=== PATIENT | male | born 1990 | race Caucasian/White ===

== ENCOUNTER 2018-03-21 12:11 | Emergency (ER) | payer OTHER ==
[2018-03-21 12:33] VITALS: TEMP 98.6; BMI 44.4
--- NOTE | 2018-03-21 13:19 | PDOC ---
History of Present Illness - General Chief Complaint: Blood Pressure Problem Stated Complaint: WEAKNESS Time Seen by Provider: 03/21/18 12:55 History Source: Patient Exam Limitations: No Limitations - History of Present Illness Initial Comments: 03/21/18 13:56 Patient is a 27 year old male with a significant past medical history of HTN, and HLD who presents to the ED with complaints of elevated blood pressure. Patient reports being diagnosed with HTN x6 years ago but states he has not taken medication for it for x1 year due to not having PCP or insurance. Pt ntoes that he intermittently has blood in his semen the past several months, notes he occasionally has diarrhea (non bloody), but non in the past few days. also notes chronic hyperpigmentation of his lower extremities. he notes that he went to 2 other clinics today and they were unable to see him so he came to the ED. The patient. denies any focal complaints including cp, sob, vomiting, fever /chils, cough, dysuria, hematuria, constipation, trammell. Allergies: None Social history: Lives with and 2 children. No smoking. No alcohol. Current Marijuana use. Surgical history: None PMD: None Past History - Past Medical History Allergies/Adverse Reactions: Allergies Allergy/AdvReac Type Severity Reaction Status Date / Time No Known Allergies Allergy Verified 03/21/18 12:27 Home Medications: Ambulatory Orders Hydrochlorothiazide [Hctz -] 25 mg PO BID #30 tablet 03/21/18 Nifedipine [Nifedipine ER] 60 mg PO DAILY #30 tab.er.24 03/21/18 COPD: No HTN: Yes (noncompliant with meds) Hypercholesterolemia: Yes (noncompliant with meds) - Suicide/Smoking/Psychosocial Hx Smoking History: Unknown if ever smoked Hx Alcohol Use: No Drug/Substance Use Hx: Yes (marijuana) Review of Systems - Review of Systems Able to Perform ROS?: Yes Comments:: 03/21/18 13:58 CONSTITUTIONAL: No reported: Fever, Chills, Diaphoresis, Generalized Weakness, Malaise, Loss of Appetite HEENT: No reported: Rhinorrhea, Nasal Congestion, Throat Pain, Throat Swelling, Difficulty Swallowing, Mouth Swelling, Ear Pain, Eye Pain, Visual Changes CARDIOVASCULAR: No reported: Chest Pain, Syncope, Palpitations, Irregular Heart Rate, Lightheadedness, Peripheral Edema RESPIRATORY: No reported: Cough, Shortness of Breath, SOB with Exertion, Orthopnea, Wheezing , Stridor, Hemoptysis GASTROINTESTINAL: +Diarrhea. No reported: Abdominal pain, Abdominal Distension, Nausea, Vomiting, Constipation, Melena, Hematochezia GENITOURINARY: +Bloody semen. No reported: Dysuria, Frequency, Urgency, Hesitancy, Flank Pain, Genital Pain MUSCULOSKELETAL: No reported: Myalgia, Arthralgia, Joint Swelling, Back pain, Neck Pain SKIN: +Bilateral lower extremity rash. No reported:Itching, Pallor HEMATOLOGIC/IMMUNOLOGIC: No reported: Easy Bleeding, Easy Bruising, Lymphadenopathy, Frequent infections ENDOCRINE: No reported: Unexplained Weight Gain, Unexplained Weight Loss, Heat Intolerance , Cold Intolerance NEUROLOGIC: No reported: Headache, Focal Weakness, Paresthesias, Vertigo, Lightheadedness, Unsteady Gait, Seizure, Mental Status Changes, Incontinence PSYCHIATRIC: No reported: Anxiety, Depression *Physical Exam - Vital Signs Last Vital Signs Temp Pulse Resp BP Pulse Ox 98.6 F 117 H 16 216/152 H 97 03/21/18 12:27 03/21/18 12:27 03/21/18 12:27 03/21/18 12:27 03/21/18 12:27 - Physical Exam Comments: 03/21/18 13:52 GENERAL: The patient is awake, alert, and fully oriented, Nontoxic - in no acute distress, obese HEAD: Normocephalic, atraumatic. EYES: extraocular movements intact, sclera anicteric, conjunctiva clear. ENT: Normal voice, Moist mucous membranes. NECK: Normal range of motion, supple LUNGS: Breath sounds equal, clear to auscultation bilaterally. No wheezes, no rhonchi, no rales. HEART: slightly tachcyardic, w/o mrg ABDOMEN: Soft, nontender, normoactive bowel sounds. No guarding, no rebound. . No CVA tenderness EXTREMITIES: Normal range of motion,+edema, +hyperpigmentation of LE cw chronic vascular changes NEUROLOGICAL: No facial assymetry, Normal speech, PSYCH: Normal mood, normal affect. SKIN: Warm, Dry, normal turgor, Heart Score/ECG Review - ECG Impressions Comment:: 03/21/18 18:44 Twelve-lead EKG was performed and reviewed by me. There is normal sinus rhythm with a rate of 107 The axis is normal. The intervals are normal. There is normal R wave progression There are no ST or T wave abnormalities. ED Treatment Course - LABORATORY CBC & Chemistry Diagram: 03/21/18 13:27 03/21/18 13:27 Medical Decision Making - Medical Decision Making 03/21/18 13:16 27y M hx of htn, hl presents for evaluation - notes that he wants to get his health care in order and presents for evaluation. Pt noted to be slightly tachy on arrival. no other complaints. will ck basic labs to r/o hyperglycmeia, dka, occult infection, joby willreassess, anticipate pmd referral if workup negative 03/21/18 15:03 labs reviewed noted for slight elevated lfts, otherwise unrmarkable HR improved to 107 anticipate dc with pmd fu 03/21/18 19:46 bp improved will dc with pmd fu return precautiosn were discussed *DC/Admit/Observation/Transfer Diagnosis at time of Disposition: Hypertension Qualifiers: Hypertension type: essential hypertension Qualified Code(s): I10 - Essential ( primary) hypertension - Discharge Dispostion Disposition: HOME Condition at time of disposition: Improved Decision to Admit order: No - Prescriptions Prescriptions: Hydrochlorothiazide [Hctz -] 25 mg PO BID #30 tablet Nifedipine [Nifedipine ER] 60 mg PO DAILY #30 tab.er.24 - Referrals Referrals: Hector Ramirez MD [Primary Care Provider] - [facility] [place] [facility] [place] Group] - Patient Instructions Printed Discharge Instructions: DI for High Blood Pressure Additional Instructions: Return to the emergency department immediately with ANY new, persistent or worsening symptoms. You MUST call and follow up with your doctor tomorrow for further evaluation of your symptoms. Results were discussed with you. Please make sure your doctor reviews the results of your emergency evaluation. If you had any xrays during your visit, it was read preliminarily by myself, a Radiologist will review it and if there are any additional findings we will call you. Print Language: SOUTH KOREAN - Post Discharge Activity
[2018-03-21] MEDS ORDERED: SODIUM CHLORIDE 1,000 ML IV ONE (13:21)
[2018-03-21 13:49] LABS: BASO % 0.6 % (0-2.0); EOS % 2.5 % (0-4.5); HEMATOCRIT 44.2 % (35.4-49); HEMOGLOBIN 14.9 GM/dL (11.7-16.9); LYMPH % 25.6 % (8-40); MCH 29.2 pg (25.7-33.7); MCHC 33.7 g/dl (32.0-35.9); MEAN CELL VOLUME 86.7 fl (80-96); MEAN PLT VOLUME 10.2 fl (7.5-11.1); MONO % 7.7 % (3.8-10.2); NEUT % 63.6 % (42.8-82.8); PLATELET COUNT 248 K/MM3 (134-434); RDW 12.7 % (11.9-15.9); WHITE BLOOD COUNT 12.7 K/mm3 (4.0-10.0)
[2018-03-21 14:08] LABS: URINE APPEARANCE CLEAR; URINE BILIRUBIN NEGATIVE (<2.0 mg/dL); URINE COLOR LTYELLOW; URINE GLUCOSE (UA) NEGATIVE (NEGATIVE); URINE KETONE NEGATIVE (NEGATIVE); URINE LEUK ESTERASE NEGATIVE (NEGATIVE); URINE NITRITE NEGATIVE (NEGATIVE); URINE PROTEIN 3+ (NEGATIVE); URINE UROBILINOGEN NEGATIVE mg/dL (0.2-1.0)
[2018-03-21 14:14] LABS: ALBUMIN 3.5 g/dl (3.4-5.0); ALK PHOS 147 U/L (45-117); ANION GAP 5 MMOL/L (8-16); BILIRUBIN,TOTAL 0.4 mg/dL (0.2-1); BLOOD UREA NITROGEN 15 mg/dL (7-18); CALCIUM 8.7 mg/dL (8.5-10.1); CHLORIDE 104 mmol/L (98-107); CO2 30 mmol/L (21-32); CREATININE 0.9 mg/dL (0.55-1.3); GLUCOSE,RANDOM 104 mg/dL (74-106); POTASSIUM 4.1 mmol/L (3.5-5.1); SGOT/AST 63 U/L (15-37); SGPT/ALT 123 U/L (13-61); SODIUM 138 mmol/L (136-145); TOT PROT 7.2 g/dl (6.4-8.2)
[2018-03-21] MEDS ORDERED: HYDROCHLOROTHIAZIDE 25 MG TABLET (FP) PO ONE (14:40)
[2018-03-21] MEDS ORDERED: HYDROCHLOROTHIAZIDE 25 MG TABLET (FP) ONE (14:43)
[2018-03-21] MEDS ORDERED: ALPRAZolam 0.25 MG TABLET PO ONE (15:12)
[2018-03-21] MEDS ORDERED: NIFEdipine E.R 60 MG TABLET (UD) PO SCH (16:00)
[2018-03-21] MEDS ORDERED: NIFEdipine E.R. 30 MG TABLET (FP) ONE (16:03)
--- NOTE | 2018-03-21 17:02 | EKG ---
Test Reason : Blood Pressure : / mmHG Vent. Rate : 107 BPM Atrial Rate : 107 BPM P-R Int : 150 ms QRS Dur : 088 ms QT Int : 354 ms P-R-T Axes : 052 067 054 degrees QTc Int : 472 ms SINUS TACHYCARDIA POSSIBLE LEFT ATRIAL ENLARGEMENT BORDERLINE ECG NO PREVIOUS ECGS AVAILABLE Confirmed by MD FRANCOIS, TERENCE ([id number]) on 03/21/2018 5:01:44 PM Referred By: Confirmed By:TERENCE PARRISH MD
[2018-03-21] MEDS ORDERED: LABETALOL HCL 5 MG/1 ML (100MG/20 ML VIAL) IVPUSH ONE (18:06)
[2018-03-21] MEDS ORDERED: LABETALOL HCL 5 MG/1 ML (200MG/40ML VIAL) IVPB ONE (18:11)
[2018-03-21 19:35] VITALS: BP 182/111; PULSE 98
== END 2018-03-21 19:47 | disposition home or self-care (01) ==
LOC: JER 12:11
PROC: 3E033GC Introduction of Other Therapeutic Substance into Peripheral Vein, Percutaneous Approach (ICD-10-PCS; principal; 2018-03-21)
PROC: 3E0337Z Introduction of Electrolytic and Water Balance Substance into Peripheral Vein, Percutaneous Approach (ICD-10-PCS; 2018-03-21)
DX: I10 Essential (primary) hypertension (principal); E78.5 Hyperlipidemia, unspecified; Z91.14 Patient's other noncompliance with medication regimen
CPT/HCPCS: 36415; 80053; 81003; 81015; 85025; 93005; 93010; 96361; 96374; 99284-25; J7030

== ENCOUNTER 2018-12-11 20:06 | Emergency (ER) | payer OTHER ==
--- NOTE | 2018-12-11 20:18 | PDOC ---
Rapid Medical Evaluation Time Seen by Provider: 12/11/18 20:14 Medical Evaluation: Allergies Allergy/AdvReac Type Severity Reaction Status Date / Time No Known Allergies Allergy Verified 03/21/18 12:27 12/11/18 20:14 This patient had a brief in-person evaluation by me. cc: cyndi x 3 weeks seen and treated my pmd but continues with the same states sick contact, children PE: NAD HEENT: erythematous pharynx Orders: throat culture This patient will proceed to Ed for further evaluation
[2018-12-11 20:20] VITALS: PULSE 98; TEMP 98.2; BMI 44.6
--- NOTE | 2018-12-11 21:19 | PDOC ---
*Physical Exam - Vital Signs Last Vital Signs Temp Pulse Resp BP Pulse Ox 98.2 F 98 H 20 151/106 H 97 12/11/18 20:14 12/11/18 20:14 12/11/18 20:14 12/11/18 20:14 12/11/18 20:14 Medical Decision Making - Medical Decision Making 12/11/18 21:19 Patient seen by the advanced practice provider under my direct supervision. Ancillary testing reviewed as necessary. I agree with plan as outlined by the advanced practice provider. *DC/Admit/Observation/Transfer Diagnosis at time of Disposition: Pharyngitis Qualifiers: Pharyngitis/tonsillitis etiology: unspecified etiology Qualified Code(s): J02.9 - Acute pharyngitis, unspecified Hypertension Qualifiers: Hypertension type: unspecified Qualified Code(s): I10 - Essential (primary) hypertension - Discharge Dispostion Disposition: HOME - Prescriptions Prescriptions: Amoxicillin/Potassium Clav [Augmentin 875-125 Tablet] 1 each PO BID #20 tablet - Referrals Referrals: Hector Ramirez MD [Primary Care Provider] - - Patient Instructions Printed Discharge Instructions: Sore Throat Additional Instructions: gargle with warm salty water take ibuprofen every 6 hours as needed for pain take tylenol every 4 hours as needed for pain throw away toothbrush in 3-4 days do not share cups or utensil with other Take augmentin as prescribed follow up with your doctor as soon as possible. Additional Instructions: Please call your personal physician to report your Emergency Department visit and to report your progress, if any. If there is no improvement in symptoms in 2 days call your physician. Return to the Emergency Department for any worsening symptoms. it is important for your to follow up with your pcp for b/p medication adjustment - Post Discharge Activity Forms/Work/School Notes: Back to Work
--- NOTE | 2018-12-11 21:36 | PDOC ---
History of Present Illness - General Chief Complaint: Sore Throat Stated Complaint: SORE THROAT Time Seen by Provider: 12/11/18 20:14 History Source: Patient - History of Present Illness Initial Comments: 12/11/18 21:29 28 year old male c/o throat pain x 3 weeks s/p antibiotics. kids with strep throat. Difficulty swallowing. denies fever/ chills, + strep 2 days ago. Patient incidentally noted to have high blood pressure reading here in the emergency room. Patient reports that he took his blood pressure medication early this morning denies chest pain, diaphoresis, headache, nausea, vomiting,. 12/11/18 21:32 HTN: 12/11/18 21:36 12/11/18 22:45 Past History - Past Medical History Allergies/Adverse Reactions: Allergies Allergy/AdvReac Type Severity Reaction Status Date / Time No Known Allergies Allergy Verified 03/21/18 12:27 Home Medications: Ambulatory Orders Hydrochlorothiazide [Hctz -] 25 mg PO BID #30 tablet 03/21/18 Nifedipine [Nifedipine ER] 60 mg PO DAILY #30 tab.er.24 03/21/18 Amoxicillin/Potassium Clav [Augmentin 875-125 Tablet] 1 each PO BID #20 tablet 12/11/18 COPD: No HTN: Yes (noncompliant with meds) Hypercholesterolemia: Yes (noncompliant with meds) - Suicide/Smoking/Psychosocial Hx Smoking History: Unknown if ever smoked Information on smoking cessation initiated: No Hx Alcohol Use: No Drug/Substance Use Hx: Yes (marijuana) Review of Systems - Review of Systems Able to Perform ROS?: Yes Is the patient limited Chinese proficient: No Constitutional: No: Symptoms Reported, See HPI, Chills, Diaphoresis, Fever, Loss of Appetite, Malaise, Night Sweats, Weakness, Weight Stable, Unintentional Wgt. Loss, Unexplained wgt Loss, Other HEENTM: Yes: Throat Pain, Throat Swelling *Physical Exam - Vital Signs Last Vital Signs Temp Pulse Resp BP Pulse Ox 98.2 F 98 H 20 151/106 H 97 12/11/18 20:14 12/11/18 20:14 12/11/18 20:14 12/11/18 20:14 12/11/18 20:14 - Physical Exam HEENT: positive: Tonsillar Erythema Neck: positive: Lymphadenopathy (R), Lymphadenopathy (L) Respiratory/Chest: positive: Lungs Clear, Normal Breath Sounds Musculoskeletal: positive: Normal Inspection Extremity: positive: Normal Capillary Refill, Normal Inspection, Normal Range of Motion Integumentary: positive: Normal Color, Dry, Warm Neurologic: positive: Fully Oriented, Alert Medical Decision Making - Medical Decision Making 12/11/18 21:37 A: pharyngitis P rapid strep: negative throat cx pending decadron augmentin *DC/Admit/Observation/Transfer Diagnosis at time of Disposition: Pharyngitis Qualifiers: Pharyngitis/tonsillitis etiology: unspecified etiology Qualified Code(s): J02.9 - Acute pharyngitis, unspecified Hypertension Qualifiers: Hypertension type: unspecified Qualified Code(s): I10 - Essential (primary) hypertension - Discharge Dispostion Disposition: HOME - Prescriptions Prescriptions: Amoxicillin/Potassium Clav [Augmentin 875-125 Tablet] 1 each PO BID #20 tablet - Referrals Referrals: Hector Ramirez MD [Primary Care Provider] - - Patient Instructions Printed Discharge Instructions: Sore Throat Additional Instructions: gargle with warm salty water take ibuprofen every 6 hours as needed for pain take tylenol every 4 hours as needed for pain throw away toothbrush in 3-4 days do not share cups or utensil with other Take augmentin as prescribed follow up with your doctor as soon as possible. Additional Instructions: Please call your personal physician to report your Emergency Department visit and to report your progress, if any. If there is no improvement in symptoms in 2 days call your physician. Return to the Emergency Department for any worsening symptoms. it is important for your to follow up with your pcp for b/p medication adjustment - Post Discharge Activity Forms/Work/School Notes: Back to Work
[2018-12-11] MEDS ORDERED: IBUPROFEN 600 MG TABLET (FP) PO ONE ×2 (21:37→21:55)
[2018-12-11] MEDS ORDERED: DEXAMETHASONE SOD PHOSPHATE 10 MG/1 ML VIAL IM ONE (21:37)
[2018-12-11] MEDS ORDERED: DEXAMETHASONE SOD PHOSPHATE 10 MG/1 ML VIAL ONE (21:55)
[2018-12-11 22:57] VITALS: BP 166/97
== END 2018-12-11 22:57 | disposition home or self-care (01) ==
LOC: JER 20:06
PROC: 3E0233Z Introduction of Anti-inflammatory into Muscle, Percutaneous Approach (ICD-10-PCS; principal; 2018-12-11)
DX: J02.9 Acute pharyngitis, unspecified (principal); I10 Essential (primary) hypertension; E78.00 Pure hypercholesterolemia, unspecified; Z91.14 Patient's other noncompliance with medication regimen
CPT/HCPCS: 87070; 87880; 96372; 99281-25; J1100

== ENCOUNTER 2019-12-19 16:24 | Inpatient (IN) | payer OTHER ==
[2019-12-19 16:56] VITALS: BMI 47.9
--- NOTE | 2019-12-19 17:17 | PDOC ---
History of Present Illness - General Chief Complaint: Syncope/Near Syncope Stated Complaint: Shortness of Breath Time Seen by Provider: 12/19/19 16:49 History Source: Patient Exam Limitations: No Limitations - History of Present Illness Initial Comments: 12/19/19 18:20 29 yo male pmh HTN and HLD (does not have insurance, can not afford medication, not taken for over 7 months) presents to the ED for worsening SOB. Pt states over the last few months he has woken up in the middle of the night SOB, can not walk more than 1 block without becoming SOB. On the way into the ED, pt became significantly SOB after walking up the steps from the parking lot and a rapid response was called in the main lobby. Pt admits to eating BBQ and fast food along with drinking a lot of soda recently. Pt also notes worsening bilateral lower limb swelling. 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 back pain, abdominal pain, recent travel, sick contacts. Past History - Medical History Allergies/Adverse Reactions: Allergies Allergy/AdvReac Type Severity Reaction Status Date / Time No Known Allergies Allergy Verified 03/21/18 12:27 COPD: No HTN: Yes (noncompliant with meds) Hypercholesterolemia: Yes (noncompliant with meds) - Psycho-Social/Smoking History Smoking History: Never smoked Have you smoked in the past 12 months: No Information on smoking cessation initiated: No - Substance Abuse Hx (Audit-C & DAST Scrn) How often the patient has a drink containing alcohol: Monthly or less Number of drinks the patient has on a typical day: 1 or 2 How often the patient has six or more drinks on one occasion: Never Score: In Men: 4 or > Positive; In Women: 3 or > Positive: 1 Screen Result (Pos requires Nsg. Audit-10AR): Negative In the last yr the pt used illegal drug/Rx for NonMed reason: No Score: Yes response is considered Positive: 0 Screen Result (Positive result requires Nsg. DAST-10): Negative Review of Systems - Review of Systems Constitutional: Yes: Symptoms Reported HEENTM: Yes: Symptoms Reported Respiratory: Yes: Symptoms reported Cardiac (ROS): Yes: Symptoms Reported ABD/GI: Yes: Symptoms Reported : Yes: Symptoms Reported Musculoskeletal: Yes: Symptoms Reported *Physical Exam - Vital Signs Last Vital Signs Temp Pulse Resp BP Pulse Ox 98.6 F 136 H 23 H 201/105 H 86 L 12/19/19 16:34 12/19/19 16:34 12/19/19 16:34 12/19/19 16:34 12/19/19 16:34 - Physical Exam General Appearance: Yes: Nourished, Appropriately Dressed. No: Apparent Distress HEENT: positive: EOMI Neck: positive: Supple. negative: Carotid bruit Respiratory/Chest: positive: Rapid RR, Crackles (bilateral bases). negative: Accessory Muscle Use, Decreased Breath Sounds Cardiovascular: positive: Regular Rhythm, S1, S2, Edema (3+ pitting bilaterally), Tachycardia Vascular Pulses: Dorsalis-Pedis (R): 3+, Doralis-Pedis (L): 3+ Gastrointestinal/Abdominal: positive: Soft. negative: Pulsatile Mass, Protuberent, Distended, Guarding, Rebound, Tenderness Musculoskeletal: negative: CVA Tenderness Extremity: positive: Normal Capillary Refill, Normal Inspection, Normal Range of Motion Integumentary: positive: Normal Color, Dry, Warm Neurologic: positive: Fully Oriented, Alert, Normal Mood/Affect, Normal Response ED Treatment Course - LABORATORY CBC & Chemistry Diagram: 12/19/19 17:20 12/19/19 17:20 Medical Decision Making - Medical Decision Making 12/19/19 18:59 29 yo male pmh HTN and HLD (does not have insurance, can not afford medication, not taken for over 7 months) presents to the ED for worsening SOB. Pt states over the last few months he has woken up in the middle of the night SOB, can not walk more than 1 block without becoming SOB. On the way into the ED, pt became significantly SOB after walking up the steps from the parking lot and a rapid response was called in the main lobby. Pt admits to eating BBQ and fast food along with drinking a lot of soda recently. Pt also notes worsening bilateral lower limb swelling. 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 back pain, abdominal pain, recent travel, sick contacts. vitals show elevated BP, RR, HR Bilateral 3+ pitting noted Bedside US shows diffuse B lines, enlarged heart and reduced EF BNP elevated. Pt likely has CHF. D dimer elevated, will do CTA to r/o PE Pending results. Attending Dr. Blanco aware and will continue following case Discharge - Discharge Information Problems reviewed: Yes Clinical Impression/Diagnosis: Hypertensive urgency, Heart failure, Pulmonary edema, Shortness of breath Condition: Guarded - Follow up/Referral - Patient Discharge Instructions - Post Discharge Activity
[2019-12-19 17:38] LABS: BASO % 0.6 % (0-2.0); EOS % 1.7 % (0-4.5); HEMOGLOBIN 15.8 GM/dL (11.7-16.9); LYMPH % 13.8 % (8-40); MCH 28.9 pg (25.7-33.7); MCHC 32.8 g/dl (32.0-35.9); MEAN CELL VOLUME 88.2 fl (80-96); MEAN PLT VOLUME 10.8 fl (7.5-11.1); MONO % 7.3 % (3.8-10.2); NEUT % 76.6 % (42.8-82.8); PLATELET COUNT 240 K/MM3 (134-434); RBC 5.44 M/mm3 (4.00-5.60); RDW 13.6 % (11.9-15.9); WHITE BLOOD COUNT 14.2 K/mm3 (4.0-10.0)
--- NOTE | 2019-12-19 17:40 | PDOC ---
Documentation entered by Anne-Marie Spears SCRIBE, acting as scribe for Nirali Blanco DO. Nirali Blanco DO: This documentation has been prepared by the Belle craig Nirvannie, SCRIBE, under my direction and personally reviewed by me in its entirety. I confirm that the documentation accurately reflects all work, treatment, procedures, and medical decision making performed by me. Attending Attestation - Resident Resident Name: Óscar Deleon - ED Attending Attestation I have performed the following: I have examined & evaluated the patient, The case was reviewed & discussed with the resident, I agree w/resident's findings & plan, Exceptions are as noted - HPI HPI: 12/19/19 18:03 The patient is a 29 year old obese male with a significant past medical history of HTN, HLD, and medication/dietary noncompliance who presents to the ED with shortness of breath. As per patient, he was walking up the stairs of the hospital at which time he began to feel short of breath and lightheaded and a rapid response was called. Patient notes attending multiple BBQs this weekend and subsequently experiencing lower extremity edema (similar with poor dietary compliance). He denies any increased weight gain. Patient has been unable to refill his prescriptions secondary to no insurance. Allergies: NKDA Familial History: Brother s/p heart transplant for unknown reasoning. - Physicial Exam PE: 12/19/19 18:04 Constitutional: Awake, alert, oriented. No acute distress. Head: Normocephalic. Atraumatic Eyes: PERRL. EOMI. Conjunctivae are not pale. ENT: Mucous membranes are moist and intact. Posterior pharynx without exudates or erythema. Uvula midline. Neck: Supple. Full ROM. No lymphadenopathy. Cardiovascular: +Tachycardic. Regular rhythm. S1, S2 regular. Distal pulses are 2+ and symmetric. Pulmonary/Chest: +Bilateral rales. No wheezing or rhonchi. Abdominal: +Obese. +Protuberant. Soft and non-distended. There is no tenderness. No rebound, guarding or rigidity. No organomegaly. No palpable masses. Good bowel sounds. Back: No CVA tenderness. Musculoskeletal: + 3+ LE edema. No cyanosis. No clubbing. Full range of motion in all extremities. No calf tenderness. Radial/pedal pulses are intact and 2+ bilaterally Skin: Skin is warm and dry. No petechiae. No purpura. Neurological: Alert and oriented to person, place, and time. Cranial nerves II-XII are grossly intact. Normal speech. Strength is grossly symmetric. No sensory deficits. Psychiatric: Good eye contact. Normal interaction, affect and behavior. - Medical Decision Making 12/19/19 17:36 a/p: 29yo male with hx of untreated HTN - noncompliant with meds bc of insurance with hx of tachy -pt with a near syncopal episode todya -was walking up the stairs and had severe sob, a rapid response was called, no syncope, but cp and edema -pt with pleuritic cp -pt with pitting edema to LE and rales on exam -hypertensive and tachy -no tearing cp, less suspicious for aortic dissection -repeat bp 160s systolic -will send labs, acs, cxr -will monitor and reassess -concern for acs, cardiomyopathy, hypertensive urgency, ape 12/19/19 17:40 12/19/19 18:24 trop neg mildly elevated bnp 12/19/19 18:24 bedside echo shows depressed ef, b lines diffusely lasix and nitro ordered 12/19/19 18:51 cxr shows pulm vasc congestion and pulm edema will need tele admission and will need hospitalization 12/19/19 19:50 duplex ultrasound neg for dvt 12/19/19 20:42 resident discussed the case with Dr. Chavis for admisson 12/19/19 21:06 cta chest neg for pe, shows pleural effusion and pulm congestion and some lymphadenopathy Heart Score/ECG Review - ECG Intrepretation Comment:: 12/19/19 17:35 sinus tach at 127, lvh, q waves anterior leads which are age indeterminate, st depressions v6/I, abnl ekg Discharge - Discharge Information Problems reviewed: Yes Clinical Impression/Diagnosis: Hypertensive urgency, Heart failure, Pulmonary edema, Shortness of breath Condition: Guarded - Admission Yes - Follow up/Referral - Patient Discharge Instructions - Post Discharge Activity
[2019-12-19 17:46] LABS: INR 1.03 (0.83-1.09); PROTHROMBIN TIME (PATIENT) 12.2 SEC (9.7-13.0)
[2019-12-19 17:49] LABS: ACTIVATED PTT 34.6 SECONDS (25.2-36.5)
[2019-12-19] MEDS ORDERED: FUROSEMIDE 40 MG/4 ML INJECTABLE VIAL IVPUSH ONE (17:59)
[2019-12-19] MEDS ORDERED: NITROGLYCERIN SUBLINGUAL 1/150 0.4 MG TAB SL ONE (18:01)
[2019-12-19] MEDS ORDERED: ASPIRIN 81 MG CHEWABLE TABLETS PO ONE (18:02)
[2019-12-19 18:05] LABS: ALBUMIN 3.1 g/dl (3.4-5.0); BILIRUBIN,TOTAL 0.6 mg/dL (0.2-1); BLOOD UREA NITROGEN 17.1 mg/dL (7-18); CALCIUM 8.6 mg/dL (8.5-10.1); CREATININE 1.2 mg/dL (0.55-1.3); MAGNESIUM 1.8 mg/dL (1.8-2.4); N-TERMINAL BNP 673.4 pg/ml (5-125); POTASSIUM 4.8 mmol/L (3.5-5.1); TOT PROT 6.9 g/dl (6.4-8.2)
[2019-12-19] MEDS ORDERED: ASPIRIN 81 MG CHEWABLE TABLETS ONE (18:13)
[2019-12-19] MEDS ORDERED: NITROGLYCERIN SUBLINGUAL 1/150 0.4 MG TAB ONE ×2 (18:14→18:16)
[2019-12-19] MEDS ORDERED: FUROSEMIDE 40 MG/4 ML INJECTABLE VIAL ONE (18:14)
--- NOTE | 2019-12-19 19:15 | PDOC ---
*Physical Exam - Vital Signs Last Vital Signs Temp Pulse Resp BP Pulse Ox 98.6 F 136 H 23 H 201/105 H 86 L 12/19/19 16:34 12/19/19 16:34 12/19/19 16:34 12/19/19 16:34 12/19/19 16:34 ED Treatment Course - LABORATORY CBC & Chemistry Diagram: 12/19/19 17:20 12/19/19 17:20 - ADDITIONAL ORDERS Additional order review: Laboratory Results 12/19/19 12/19/19 12/19/19 17:53 17:20 17:20 PT with INR INR PTT (Actin FS) D-Dimer 1046 H Sodium 138 Potassium 4.8 Chloride 104 Carbon Dioxide 29 Anion Gap 5 L BUN 17.1 Creatinine 1.2 Est GFR (CKD-EPI)AfAm 92.83 Est GFR (CKD-EPI)NonAf 80.09 Random Glucose 123 H Lactic Acid 1.4 Calcium 8.6 Magnesium 1.8 Total Bilirubin 0.6 AST 74 H ALT 83 H Alkaline Phosphatase 120 H Creatine Kinase 201 Creatine Kinase Index 0.4 CK-MB (CK-2) 1.0 Troponin I 0.02 B-Natriuretic Peptide 673.4 H Total Protein 6.9 Albumin 3.1 L 12/19/19 17:20 PT with INR 12.20 INR 1.03 PTT (Actin FS) 34.6 D-Dimer Sodium Potassium Chloride Carbon Dioxide Anion Gap BUN Creatinine Est GFR (CKD-EPI)AfAm Est GFR (CKD-EPI)NonAf Random Glucose Lactic Acid Calcium Magnesium Total Bilirubin AST ALT Alkaline Phosphatase Creatine Kinase Creatine Kinase Index CK-MB (CK-2) Troponin I B-Natriuretic Peptide Total Protein Albumin 12/19/19 17:20 RBC 5.44 MCV 88.2 MCHC 32.8 RDW 13.6 MPV 10.8 Neutrophils % 76.6 D Lymphocytes % 13.8 D Monocytes % 7.3 Eosinophils % 1.7 Basophils % 0.6 - Medications Given in the ED: ED Medications Discontinued Medications Generic Name Dose Route Start Last Admin Trade Name Freq PRN Reason Stop Dose Admin Aspirin 324 mg 12/19/19 18:02 12/19/19 18:21 Asa - PO 12/19/19 18:03 324 mg ONCE ONE Administration Furosemide 40 mg 12/19/19 17:59 12/19/19 18:20 Lasix Injection - IVPUSH 12/19/19 18:00 40 mg ONCE ONE Administration Nitroglycerin 0.4 mg 12/19/19 18:01 12/19/19 18:21 Nitrostat - SL 12/19/19 18:02 0.4 mg ONCE ONE Administration Medical Decision Making - Medical Decision Making 12/19/19 19:14 received as sign out from day team new onset HF elevated d-dimer SBP down to 140s s/p nitro and lasix [] f/u CTA [] admit 12/19/19 20:01 no dvt seen on b/l LE duplex 12/19/19 20:[address] Chavis Discharge - Discharge Information Problems reviewed: Yes Clinical Impression/Diagnosis: Hypertensive urgency, Heart failure, Pulmonary edema, Shortness of breath Condition: Guarded - Admission Yes - Follow up/Referral - Patient Discharge Instructions - Post Discharge Activity
--- NOTE | 2019-12-19 19:20 | PN ---
Teaching Attending Note Name of Resident: Lori Richmond ATTENDING PHYSICIAN STATEMENT I saw and evaluated the patient. I reviewed the resident's note and discussed the case with the resident. I agree with the resident's findings and plan as documented. SUBJECTIVE: Patient is a 29 year old man with a PMH of Morbid obesity, HTN, Marijuana use, HLD and Nonadherence due to lack of health insurance presents to the ER for worsening SOB for months. Patient states that over the last few months he has woken up in the middle of the night with SOB and cannot walk more than 1 block without becoming SOB. On the way into the ER, he became significantly SOB after walking up the steps from the parking lot and a rapid response was called in the main lobby. Patient admits to eating BBQ and fast food along with drinking a lot of soda recently. Also notes worsening bilateral lower limb swelling. Patient denies chest pain, nausea, vomiting, fever, chills, diarrhea, dysuria, back pain, abdominal pain or frequency. Denies alcohol, tobacco or illicit drug use. No sick contacts or recent travels. Family history of heart disease - his brother is 34 years old and currently on the heart transplant list for the past 5 years, but he does not know the underlying diagnosis. OBJECTIVE: Alert Vital Signs Period Temp Pulse Resp BP Sys/Newman Pulse Ox Last 24 Hr 98.6 F 112-136 16-23 158-201/95-105 86-98 HEENT: No Jaundice, eye redness or discharge, PERRLA, EOMI. Normocephalic, atraumatic. External ears are normal and hearing is grossly intact. No nasal discharge. Neck: Supple, nontender. No palpable adenopathy or thyromegaly. No JVD Chest: Good effort. Clear to auscultation and percussion. Heart: Regular. No S3, rub or murmur Abdomen: Not distended, soft, nontender and no HSM. No rebound or guarding. Normal bowel sounds. Ext: Peripheral pulses intact. No leg edema. Skin: Warm and dry. No petechiae, rash or ecchymosis. Neuro: Alert. Oriented x3. CN 2-12 grossly intact. Sensation grossly intact in all four extremities and DTR are symmetric. Psych: Appropriate mood and affect. Good insight. Abnormal Lab Results 12/19/19 12/19/19 12/19/19 17:20 17:20 17:53 WBC 14.2 H Absolute Neuts (auto) 10.8 H D-Dimer 1046 H Anion Gap 5 L Random Glucose 123 H AST 74 H ALT 83 H Alkaline Phosphatase 120 H LD Total 549 H C-Reactive Protein 0.5 H B-Natriuretic Peptide 673.4 H Albumin 3.1 L ASSESSMENT AND PLAN: 1. New onset CHF/Acute hypoxic respiratory failure/Rule out COVID-19 infection - Oxygen saturation was 86% on room air. CXR shows cardiomegaly with bilateral interstitial markings suggestive of pulmonary vascular congestion. No leg DVT noted on vascular study. Chest CTA.... Elevated LFTs may signal hepatic congestion due to CHF, but will get hepatitis serology, abdominal sonogram and trend LFTs. Viral testing for COVID-19 ordered and patient placed on airborne, droplet and contact isolation. Started on supplemental oxygen via nasal cannula. ER staff prescribed SL NTG, ASA 324 mg and IV Lasix 40 mg for the patient. EKG shows sinus tachycardia at 127/minute and QTc with no significant ST-T wave changes. Initial troponin is negative. Will admit to telemetry, get ECHO, fasting lipids, HbA1c, TFT, treat with escalating doses of IV Lasix to achieve adequate diuresis, restrict dietary salt intake, monitor renal function, monitor and replete electrolytes, get daily weight and consult Cardiology. Will continue comprehensive care for all of patients comorbid conditions. 2. Hypoalbuminemia - Possibly due to combined effects of malnutrition and inflammation associated with comorbid conditions. Will ensure adequate dietary protein intake and also consult wet mix operator. Urinalysis pending. 3. Morbid obesity Counseled on the risks associated with morbid obesity. Will provide patient all the necessary assistance, counseling and positive reinforcement to facilitate weight loss. Consult wet mix operator. 4. Hypertensive urgency BP improved to 158/95 in the ER after initial treatment. Will start Coreg and Lisinopril in addition to the IV lasix. Subsequently, will revise regimen to ensure [id number] excellent BP control. Patient counseled on the injurious effects of uncontrolled hypertension. Nonpharmacologic measures to control hypertension like weight loss, salt restriction and exercise stressed. Importance of adherence to treatment regimen and attainment of normotension emphasized. 5. DVT prophylaxis - Lovenox 40 mg SQ q 12 hours. 6. Advance directives - Full code
[2019-12-20 00:48] LABS: EPI CELLS 7 /uL (0-25.1); HYALINE CASTS 0 /uL (0-3.1); URINE APPEARANCE CLEAR; URINE BACTERIA 4 /uL (0-1359); URINE BILIRUBIN NEGATIVE (NEGATIVE); URINE COLOR YELLOW; URINE GLUCOSE (UA) NEGATIVE (NEGATIVE); URINE KETONE NEGATIVE (NEGATIVE); URINE LEUK ESTERASE NEGATIVE (NEGATIVE); URINE NITRITE NEGATIVE (NEGATIVE); URINE PROTEIN 2+ (NEGATIVE); URINE RBC 3 /uL (0-23.9); URINE UROBILINOGEN 0.2 mg/dL (0.2-1.0); URINE WBC 2 /uL (0-25.8)
--- NOTE | 2019-12-20 07:20 | CON.CARD ---
Consult Consult Specialty:: cardiology Reason for Consultation:: HTN; CHF - History of Present Illness Chief Complaint: Pt A&Ox3; easily dyspneic; denies chest pain. History of Present Illness: Mr. Vivar is a 29 yo male with pmh HTN, HLD (does not have insurance, cannot afford medication, has not taken meds for over 7 months), morbid obesity (weighed 170 lbs at 18 yrs old; played several sports; since of child 9 yrs ago, he became sedentary and, though keeps healthy diet, eats "too much", and has at least 2 liters soda daily; "I know food can be an addiction"), likely sleep apnea (snores excessively; sometimes falls asleep while driving during the day), now presents to the ED for worsening SOB. Pt states over the last few months he has woken up in the middle of the night SOB, cannot walk more than 1 block without becoming SOB. On the way into the ED, pt became significantly SOB after walking up the steps from the parking lot and a rapid response was called in the main lobby. Pt admits to eating BBQ and fast food along with drinking a lot of soda recently. Pt also notes worsening bilateral lower limb swelling. 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 Denies CP, F/C/N/V. back pain, abdominal pain, recent travel, sick contacts. No hx smoking cigarettes. Alcohol:rare; never a heavy drinker. Substance abuse: marijuana a few times a week; otherwise no others. No family hx CAD/CVA. 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 - History Source History Provided By: Patient, Medical Record Limitations to Obtaining History: No Limitations - Past Medical History Cardio/Vascular: Yes: CHF, HTN - Alcohol/Substance Use Hx Alcohol Use: No - Smoking History Smoking history: Never smoked Have you smoked in the past 12 months: No Home Medications - Allergies Allergies/Adverse Reactions: Allergies Allergy/AdvReac Type Severity Reaction Status Date / Time No Known Allergies Allergy Verified 03/21/18 12:27 - Home Medications Home Medications: Ambulatory Orders NK [No Known Home Medication] 12/20/19 Vital Signs: Vital Signs Temperature 98.1 F 12/20/19 06:46 Pulse Rate 115 H 12/20/19 06:46 Respiratory Rate 22 H 12/20/19 06:46 Blood Pressure 158/113 H 12/20/19 06:46 O2 Sat by Pulse Oximetry (%) 98 12/20/19 06:46 - Other Data Labs, Other Data: CBC, BMP 12/19/19 17:20 12/19/19 17:20 INR, PTT INR 1.03 (0.83-1.09) 12/19/19 17:20 Troponin, BNP 12/19/19 17:20 Troponin I 0.02 B-Natriuretic Peptide 673.4 H Troponin, BNP 12/19/19 17:20 Troponin I 0.02 B-Natriuretic Peptide 673.4 H Assessment/Plan Noncompliance to medications, diet, exercise, doctors' visits; no insurance Morbid obesity Hypertensive urgency; tachycardia; elevated BNP Dyspnea on exertion sedentary hyperlipidemia elevated glucose Hypoalbuminemia Elevated LFTs Brother on heart transplant list CT chest: mediastinal and hilar lymphadenopathy; small pleural effusions; interstitial vascular congestion Leukocytosis PlN: Serial EKG and TNi (initial TNI 0.02) Start lisinopril and HCTZ; f/u BP serially. F/u BUN/Cr, electrolytes, daily weight, Is and Os. ECHO for LVEF, valve status. CTA negative for PE; f/u regarding lymphadenopathy Lipid profile; TSH; HGBA1c. Major issues are noncompliance, lack of insurance; poor prognosis if these are not addressed. Addendum: TSH WNL Elevated LDL cholesterol. F/u LFTs (presently elevated); plan to start statin.
[2019-12-20] MEDS ORDERED: HYDROCHLOROTHIAZIDE 25 MG TABLET (FP) ONE (07:54)
[2019-12-20] MEDS: HYDROCHLOROTHIAZIDE 12.5 MG CAPSULE (FP) PO SCH ×2 (07:58→09:00)
[2019-12-20] MEDS: LISINOPRIL 5 MG TABLET (FP) PO SCH ×2 (07:59→09:00)
[2019-12-20] MEDS ORDERED: HEPARIN NA (PORCINE) 5,000 UNITS/ML 1ML VIAL ONE (09:25)
[2019-12-20] MEDS ORDERED: ASPIRIN COATED 81 MG TABLET.EC ONE (09:25)
[2019-12-20] MEDS: HEPARIN NA (PORCINE) 5,000 UNITS/ML 1ML VIAL SQ SCH ×2 (09:30→21:39)
[2019-12-20] MEDS: ASPIRIN COATED 81 MG TABLET.EC PO SCH (09:30)
--- NOTE | 2019-12-20 11:09 | CONSULT ---
Consultation: REQUESTING PROVIDER: Dr. Chavis CONSULT REQUEST: We have been asked to medically evaluate this patient for lymphadenopathy. HISTORY OF PRESENT ILLNESS: Pt. is a 29 y.o. M w/ PMHx. of HTN, HLD and Hx. of heart murmur presents for shortness of breath that began yesterday morning. Pt. states that over the weekend he went to multiple family barbecues and had a lot of salty foods. Previously he was diet gin and trying to watch what he ate. His shortness of breath got progressively worse such that he came to the ED for evaluation. Just prior to entering the ED, rapid response was called for near syncope. We are called to assess for lymphadenopathy noted on CTA. Pt. denies any recent changes in weight, though he does endorse progressive swelling in hig lower extremities over the last few months. Pt. endorses family history of his brother having received a heart transplant on his(brother's) birthday, [birth year] at 34 years old for an unknown heart condition. Pt. endorses being told he had a heart murmur when he was small and that his 2 year old daughter has a heart murmur. Pt. states he snores loudly at night and this he has sleep apnea. Pt. endorses longstanding palpitations and feeling like his heart is moving "double time." Pt. denies any family history of cancer, and blood in his stool or urine, any constipation, and night sweats, nausea, vomiting, fevers or numbness tingling in his extremities. Pt. denies any toxic habits. Pt. states that when he decreases his salt intake he notices that his swelling goes down. REVIEW OF SYSTEMS: As above PHYSICAL EXAMINATION Vital Signs - 24 hr 12/19/19 12/19/19 12/19/19 16:27 16:34 19:44 Temperature 98.6 F Pulse Rate 136 H Pulse Rate [ 112 H Radial] Pulse Rate [ Right Radial] Respiratory 23 H 16 Rate Blood Pressure 201/105 H Blood Pressure 158/95 [Left Arm] Blood Pressure [Right Arm] O2 Sat by Pulse 96 86 L 98 Oximetry (%) 12/19/19 12/19/19 12/20/19 22:23 22:42 00:00 Temperature Pulse Rate Pulse Rate [ 113 H 113 H Radial] Pulse Rate [ Right Radial] Respiratory 17 20 Rate Blood Pressure Blood Pressure 161/92 159/96 [Left Arm] Blood Pressure [Right Arm] O2 Sat by Pulse 98 98 98 Oximetry (%) 12/20/19 12/20/19 12/20/19 02:39 03:40 03:41 Temperature Pulse Rate Pulse Rate [ 112 H 112 H Radial] Pulse Rate [ Right Radial] Respiratory 20 20 Rate Blood Pressure Blood Pressure 159/114 H 155/82 [Left Arm] Blood Pressure [Right Arm] O2 Sat by Pulse 98 98 98 Oximetry (%) 12/20/19 12/20/19 12/20/19 06:46 08:00 08:05 Temperature 98.1 F Pulse Rate 98 H Pulse Rate [ Radial] Pulse Rate [ 115 H 98 H Right Radial] Respiratory 22 H 16 Rate Blood Pressure Blood Pressure 158/113 H 159/105 H [Left Arm] Blood Pressure 162/114 H [Right Arm] O2 Sat by Pulse 98 96 96 Oximetry (%) 12/20/19 12/20/19 09:00 10:22 Temperature Pulse Rate Pulse Rate [ Radial] Pulse Rate [ 105 H 103 H Right Radial] Respiratory 18 14 Rate Blood Pressure Blood Pressure 145/99 156/106 H [Left Arm] Blood Pressure [Right Arm] O2 Sat by Pulse 96 96 Oximetry (%) GENERAL: Awake, alert, and fully oriented, in no acute distress. HEAD: Normal with no signs of trauma. EYES: Extraocular movements intact, sclera anicteric, conjunctiva clear. EARS, NOSE, THROAT: Ears normal, nares patent, oropharynx clear without exudates. Moist mucous membranes. NECK: No JVD, no hepatojugular reflex LUNGS: Decreased breath dounds up to mid-lung bilaterally, crackles at bases. No accessory muscle use. Desaturated to 80s once O2 turned off, titrated back to 95% on 2LNC (was on 4LNC during my interview) HEART: Tachycardic, regular rate and rhythm, normal S1 and S2 with mumur ABDOMEN: Soft, nontender, not distended but protuberant, normoactive bowel sounds, no guarding, no rebound, no masses. MUSCULOSKELETAL: Normal range of motion at all joints. No bony deformities or tenderness. UPPER EXTREMITIES: 2+ radial pulses, warm, well-perfused. No cyanosis. No clubbing. LOWER EXTREMITIES: 2+ dorsal pedal pulses, warm, well-perfused. No calf tenderness. 2+ edema. NEUROLOGICAL: No focal deficits, Gait not assessed, Normal speech PSYCHIATRIC: Cooperative. Good eye contact. Appropriate mood and affect. SKIN: Warm, dry, normal turgor Laboratory Results - last 24 hr 12/19/19 12/19/19 12/19/19 17:20 17:20 17:20 WBC 14.2 H RBC 5.44 Hgb 15.8 Hct 48.0 MCV 88.2 MCH 28.9 MCHC 32.8 RDW 13.6 Plt Count 240 MPV 10.8 Absolute Neuts (auto) 10.8 H Neutrophils % 76.6 D Lymphocytes % 13.8 D Monocytes % 7.3 Eosinophils % 1.7 Basophils % 0.6 Nucleated RBC % 0 PT with INR 12.20 INR 1.03 PTT (Actin FS) 34.6 D-Dimer Sodium 138 Potassium 4.8 Chloride 104 Carbon Dioxide 29 Anion Gap 5 L BUN 17.1 Creatinine 1.2 Est GFR (CKD-EPI)AfAm 92.83 Est GFR (CKD-EPI)NonAf 80.09 Random Glucose 123 H Hemoglobin A1c % Lactic Acid Calcium 8.6 Magnesium 1.8 Ferritin 42.4 Total Bilirubin 0.6 AST 74 H ALT 83 H Alkaline Phosphatase 120 H LD Total 549 H Creatine Kinase 201 Creatine Kinase Index 0.4 CK-MB (CK-2) 1.0 Troponin I 0.02 C-Reactive Protein 0.5 H B-Natriuretic Peptide 673.4 H Total Protein 6.9 Albumin 3.1 L Triglycerides Cholesterol Total LDL Cholesterol HDL Cholesterol TSH Urine Color Urine Appearance Urine pH Ur Specific [place] Urine Protein Urine Glucose (UA) Urine Ketones Urine Blood Urine Nitrite Urine Bilirubin Urine Urobilinogen Ur Leukocyte Esterase Urine WBC (Auto) Urine RBC (Auto) Urine Casts (Auto) U Epithel Cells (Auto) Urine Bacteria (Auto) 12/19/19 12/19/19 12/20/19 17:20 17:53 00:30 WBC RBC Hgb Hct MCV MCH MCHC RDW Plt Count MPV Absolute Neuts (auto) Neutrophils % Lymphocytes % Monocytes % Eosinophils % Basophils % Nucleated RBC % PT with INR INR PTT (Actin FS) D-Dimer 1046 H Sodium Potassium Chloride Carbon Dioxide Anion Gap BUN Creatinine Est GFR (CKD-EPI)AfAm Est GFR (CKD-EPI)NonAf Random Glucose Hemoglobin A1c % Lactic Acid 1.4 Calcium Magnesium Ferritin Total Bilirubin AST ALT Alkaline Phosphatase LD Total Creatine Kinase Creatine Kinase Index CK-MB (CK-2) Troponin I C-Reactive Protein B-Natriuretic Peptide Total Protein Albumin Triglycerides Cholesterol Total LDL Cholesterol HDL Cholesterol TSH Urine Color Yellow Urine Appearance Clear Urine pH 6.0 Ur Specific [place] 1.012 Urine Protein 2+ H Urine Glucose (UA) Negative Urine Ketones Negative Urine Blood Negative Urine Nitrite Negative Urine Bilirubin Negative Urine Urobilinogen 0.2 Ur Leukocyte Esterase Negative Urine WBC (Auto) 2 Urine RBC (Auto) 3 Urine Casts (Auto) 0 U Epithel Cells (Auto) 7 Urine Bacteria (Auto) 4 12/20/19 12/20/19 09:49 09:49 WBC RBC Hgb Hct MCV MCH MCHC RDW Plt Count MPV Absolute Neuts (auto) Neutrophils % Lymphocytes % Monocytes % Eosinophils % Basophils % Nucleated RBC % PT with INR INR PTT (Actin FS) D-Dimer Sodium Potassium Chloride Carbon Dioxide Anion Gap BUN Creatinine Est GFR (CKD-EPI)AfAm Est GFR (CKD-EPI)NonAf Random Glucose Hemoglobin A1c % 6.4 H Lactic Acid Calcium Magnesium Ferritin Total Bilirubin AST ALT Alkaline Phosphatase LD Total 299 H Creatine Kinase 129 Creatine Kinase Index CK-MB (CK-2) Troponin I 0.02 C-Reactive Protein B-Natriuretic Peptide Total Protein Albumin Triglycerides 272 H Cholesterol 273 H Total LDL Cholesterol 171 H HDL Cholesterol 50 TSH 1.78 Urine Color Urine Appearance Urine pH Ur Specific [place] Urine Protein Urine Glucose (UA) Urine Ketones Urine Blood Urine Nitrite Urine Bilirubin Urine Urobilinogen Ur Leukocyte Esterase Urine WBC (Auto) Urine RBC (Auto) Urine Casts (Auto) U Epithel Cells (Auto) Urine Bacteria (Auto) Active Medications Generic Name Dose Route Start Last Admin Trade Name Freq PRN Reason Stop Dose Admin Aspirin 81 mg 12/20/19 10:00 12/20/19 09:30 Ecotrin - PO 81 mg DAILY ARRON Administration Heparin Sodium (Porcine) 5,000 unit 12/20/19 10:00 12/20/19 09:30 Heparin - SQ 5,000 unit BID ARRON Administration Hydrochlorothiazide 12.5 mg 12/20/19 07:45 12/20/19 09:00 Hctz - PO Not Given DAILY ARRON Lisinopril 5 mg 12/20/19 07:45 12/20/19 09:00 Prinivil PO Not Given DAILY ARRON ASSESSMENT/PLAN: Pt. is a 29 y.o. M w/ PMHx. of HTN, HLD and Hx. of heart murmur presents for shortness of breath that began yesterday morning. #Lymphadenopathy CTA noted slight interval increase in mediastinal and hilar lymphnodes, negative for PE Pt. negative for DVT CXR: shows cardiomegaly, pulmonary congestion EKG: LVH, sinus tachycardia to 127, Q waves in anterior leads, ST depression in V6 and I This picture is suggestive of congestive heart failure with lymphadenopathy as a sequela/reactive of volume overload Lymphnodes are mildly enlarged to 1.2 cm w/o any other clinical signs of malignancy would repeat CT 3 months. f/u Covid swab Cardiology consult appreciated, f/u Echo DVT Ppx. f/u LDH Dispo: We will continue to follow the patient. Thank you for this consultative opportunity. Visit type - Emergency Visit Emergency Visit: Yes ED Registration Date: 12/19/19 Care time: The patient presented to the Emergency Department on the above date and was hospitalized for further evaluation of their emergent condition. - New Patient This patient is new to me today: Yes Date on this admission: 12/20/19 - Critical Care Critical Care patient: No ATTENDING PHYSICIAN STATEMENT I saw and evaluated the patient. I reviewed the resident's note and discussed the case with the resident. I agree with the resident's findings and plan as documented. SUBJECTIVE: OBJECTIVE: ASSESSMENT AND PLAN:
--- NOTE | 2019-12-20 11:53 | EKG ---
Test Reason : Blood Pressure : / mmHG Vent. Rate : 127 BPM Atrial Rate : 127 BPM P-R Int : 142 ms QRS Dur : 090 ms QT Int : 326 ms P-R-T Axes : 039 052 033 degrees QTc Int : 473 ms SINUS TACHYCARDIA LEFT ATRIAL ENLARGEMENT BORDERLINE ECG WHEN COMPARED WITH ECG OF 21-MAR-2018 14:54, NO SIGNIFICANT CHANGE WAS FOUND Confirmed by HILARIO ROMO MD ([id number]) on 12/20/2019 11:53:27 AM Referred By: Confirmed By:HILARIO ROMO MD
--- NOTE | 2019-12-20 13:44 | ECHO ---
Name: ASTER GARIBAY Exam:Adult Echocardiogram Study Date: 12/20/2019 11:53 AM Age: 29 yrs Reason For Study: HTN URGENCY; CHF Height: 69 in Weight: 325 lb BSA: 2.5 m2 MMode/2D Measurements & Calculations RVDd: 4.1 cm Ao root diam: 3.1 cm IVSd: 1.5 cm LA dimension: 4.9 cm LVIDd: 5.3 cm ACS: 1.8 cm LVIDs: 4.1 cm LVPWd: 1.5 cm EDV(Teich): 134.6 ml LVOT diam: 2.3 cm ESV(Teich): 74.0 ml LVLd ap4: 9.6 cm SV(MOD-sp4): 91.0 ml EDV(MOD-sp4): 221.0 ml LVLs ap4: 8.6 cm ESV(MOD-sp4): 130.0 ml LAV (MOD-bp): 92.0 ml TAPSE: 1.6 cm RV S Charlie: 13.1 cm/sec Doppler Measurements & Calculations MV E max charlie: 111.9 cm/sec Ao V2 max: 114.0 cm/sec MV A max charlie: 71.3 cm/sec Ao max P.2 mmHg MV E/A: 1.6 Ao V2 mean: 83.2 cm/sec MV dec time: 0.19 sec Ao mean P.2 mmHg Ao V2 VTI: 17.9 cm WILEY(I,D): 3.2 cm2 WILEY(V,D): 3.3 cm2 LV V1 max P.0 mmHg SV(LVOT): 56.9 ml LV V1 mean P.7 mmHg LV V1 max: 87.2 cm/sec LV V1 mean: 59.5 cm/sec LV V1 VTI: 13.2 cm TR max charlie: 247.0 cm/sec PA V2 max: 107.2 cm/sec TR max P.4 mmHg PA max P.6 mmHg PA acc slope: 546.7 cm/sec2 PA acc time: 0.14 sec Med Peak E' Charlie: 6.7 cm/sec PA pr(Accel): 15.6 mmHg Med E/e': 16.6 Lat Peak E' Charlie: 7.1 cm/sec Lat E/e': 15.7 Tech Comments TDS due to morbid obesity. Procedure A complete two-dimensional transthoracic echocardiogram was performed (2D, M-mode, Doppler and color flow Doppler). Left Ventricle There is mild concentric left ventricular hypertrophy. The left ventricular ejection fraction is norm al. Ejection Fraction = 55-60%. No regional wall motion abnormalities noted. Right Ventricle The right ventricle is normal in size and function. Atria The left atrium is mildly dilated. Right atrial size is normal. Mitral Valve There is no mitral regurgitation noted. Tricuspid Valve There is trace tricuspid regurgitation. Right ventricular systolic pressure is normal. Aortic Valve No hemodynamically significant valvular aortic stenosis. No aortic regurgitation is present. Pulmonic Valve There is no pulmonic valvular regurgitation. Great Vessels The aortic root is normal size. Pericardium/Pleura There is no pericardial effusion. Interpretation Summary The left ventricular ejection fraction is normal. There is mild concentric left ventricular hypertrophy. The right ventricle is normal in size and function. The left atrium is mildly dilated. There is trace tricuspid regurgitation. MD Navin Mina 12/20/2019 01:43 PM
--- NOTE | 2019-12-20 13:52 | HP ---
Admitting History and Physical - Primary Care Physician PCP: Gabriela Chavis - Admission History of Present Illness: Mr. Vivar is a 29 yo male with pmh HTN and HLD (does not have insurance, cannot afford medication, has not taken meds for over 7 months) presents to the ED for worsening SOB. Pt states over the last few months he has woken up in the middle of the night SOB, cannot walk more than 1 block without becoming SOB. On the way into the ED, pt became significantly SOB after walking up the steps from the parking lot and a rapid response was called in the main lobby. Pt admits to eating BBQ and fast food along with drinking a lot of soda recently. Pt also notes worsening bilateral lower limb swelling. 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 Denies CP, F/C/N/V. back pain, abdominal pain, recent travel, sick contacts. - Past Medical History Cardiovascular: Yes: CHF, HTN - Smoking History Smoking history: Never smoked Have you smoked in the past 12 months: No - Alcohol/Substance Use Hx Alcohol Use: No Home Medications - Allergies Allergies/Adverse Reactions: Allergies Allergy/AdvReac Type Severity Reaction Status Date / Time No Known Allergies Allergy Verified 03/21/18 12:27 - Home Medications Home Medications: Ambulatory Orders NK [No Known Home Medication] 12/20/19 Physical Examination Vital Signs: Vital Signs Temperature 98.1 F 12/20/19 06:46 Pulse Rate 100 H 12/20/19 12:45 Respiratory Rate 18 12/20/19 12:45 Blood Pressure 153/102 H 12/20/19 12:45 O2 Sat by Pulse Oximetry (%) 96 12/20/19 12:45 Constitutional: Yes: No Distress HENT: Yes: Atraumatic Neck: Yes: Supple Cardiovascular: Yes: Regular Rate and Rhythm Respiratory: Yes: Rhonchi Gastrointestinal: Yes: Normal Bowel Sounds Extremities: Yes: WNL Neurological: Yes: Alert, Oriented Labs: CBC, BMP 12/19/19 17:20 12/19/19 17:20 Imaging - Results Cat Scan: Report Reviewed Other: Report Reviewed Problem List - Problems (1) Heart failure Code(s): I50.9 - HEART FAILURE, UNSPECIFIED (2) Hypertensive urgency Assessment/Plan: on meds monitor bp cardio on board Code(s): I16.0 - HYPERTENSIVE URGENCY (3) Shortness of breath Code(s): R06.02 - SHORTNESS OF BREATH (4) Hypertension Code(s): I10 - ESSENTIAL (PRIMARY) HYPERTENSION Qualifiers: Hypertension type: unspecified Qualified Code(s): I10 - Essential (primary) hypertension Assessment/Plan Laboratory Tests 12/19/19 12/19/19 12/19/19 17:20 17:20 17:20 WBC 14.2 H RBC 5.44 Hgb 15.8 Hct 48.0 MCV 88.2 MCH 28.9 MCHC 32.8 RDW 13.6 Plt Count 240 MPV 10.8 Absolute Neuts (auto) 10.8 H Neutrophils % 76.6 D Lymphocytes % 13.8 D Monocytes % 7.3 Eosinophils % 1.7 Basophils % 0.6 Nucleated RBC % 0 PT with INR 12.20 INR 1.03 PTT (Actin FS) 34.6 D-Dimer Sodium 138 Potassium 4.8 Chloride 104 Carbon Dioxide 29 Anion Gap 5 L BUN 17.1 Creatinine 1.2 Est GFR (CKD-EPI)AfAm 92.83 Est GFR (CKD-EPI)NonAf 80.09 Random Glucose 123 H Hemoglobin A1c % Lactic Acid Calcium 8.6 Magnesium 1.8 Ferritin 42.4 Total Bilirubin 0.6 AST 74 H ALT 83 H Alkaline Phosphatase 120 H LD Total 549 H Creatine Kinase 201 Creatine Kinase Index 0.4 CK-MB (CK-2) 1.0 Troponin I 0.02 C-Reactive Protein 0.5 H B-Natriuretic Peptide 673.4 H Total Protein 6.9 Albumin 3.1 L Triglycerides Cholesterol Total LDL Cholesterol HDL Cholesterol TSH Urine Color Urine Appearance Urine pH Ur Specific Charlo Urine Protein Urine Glucose (UA) Urine Ketones Urine Blood Urine Nitrite Urine Bilirubin Urine Urobilinogen Ur Leukocyte Esterase Urine WBC (Auto) Urine RBC (Auto) Urine Casts (Auto) U Epithel Cells (Auto) Urine Bacteria (Auto) 12/19/19 12/19/19 12/20/19 17:20 17:53 00:30 WBC RBC Hgb Hct MCV MCH MCHC RDW Plt Count MPV Absolute Neuts (auto) Neutrophils % Lymphocytes % Monocytes % Eosinophils % Basophils % Nucleated RBC % PT with INR INR PTT (Actin FS) D-Dimer 1046 H Sodium Potassium Chloride Carbon Dioxide Anion Gap BUN Creatinine Est GFR (CKD-EPI)AfAm Est GFR (CKD-EPI)NonAf Random Glucose Hemoglobin A1c % Lactic Acid 1.4 Calcium Magnesium Ferritin Total Bilirubin AST ALT Alkaline Phosphatase LD Total Creatine Kinase Creatine Kinase Index CK-MB (CK-2) Troponin I C-Reactive Protein B-Natriuretic Peptide Total Protein Albumin Triglycerides Cholesterol Total LDL Cholesterol HDL Cholesterol TSH Urine Color Yellow Urine Appearance Clear Urine pH 6.0 Ur Specific Charlo 1.012 Urine Protein 2+ H Urine Glucose (UA) Negative Urine Ketones Negative Urine Blood Negative Urine Nitrite Negative Urine Bilirubin Negative Urine Urobilinogen 0.2 Ur Leukocyte Esterase Negative Urine WBC (Auto) 2 Urine RBC (Auto) 3 Urine Casts (Auto) 0 U Epithel Cells (Auto) 7 Urine Bacteria (Auto) 4 12/20/19 12/20/19 09:49 09:49 WBC RBC Hgb Hct MCV MCH MCHC RDW Plt Count MPV Absolute Neuts (auto) Neutrophils % Lymphocytes % Monocytes % Eosinophils % Basophils % Nucleated RBC % PT with INR INR PTT (Actin FS) D-Dimer Sodium Potassium Chloride Carbon Dioxide Anion Gap BUN Creatinine Est GFR (CKD-EPI)AfAm Est GFR (CKD-EPI)NonAf Random Glucose Hemoglobin A1c % 6.4 H Lactic Acid Calcium Magnesium Ferritin Total Bilirubin AST ALT Alkaline Phosphatase LD Total 299 H Creatine Kinase 129 Creatine Kinase Index CK-MB (CK-2) Troponin I 0.02 C-Reactive Protein B-Natriuretic Peptide Total Protein Albumin Triglycerides 272 H Cholesterol 273 H Total LDL Cholesterol 171 H HDL Cholesterol 50 TSH 1.78 Urine Color Urine Appearance Urine pH Ur Specific Charlo Urine Protein Urine Glucose (UA) Urine Ketones Urine Blood Urine Nitrite Urine Bilirubin Urine Urobilinogen Ur Leukocyte Esterase Urine WBC (Auto) Urine RBC (Auto) Urine Casts (Auto) U Epithel Cells (Auto) Urine Bacteria (Auto) Active Medications Generic Name Dose Route Start Last Admin Trade Name Freq PRN Reason Stop Dose Admin Aspirin 81 mg 12/20/19 10:00 12/20/19 09:30 Ecotrin - PO 81 mg DAILY [facility] Administration Heparin Sodium (Porcine) 5,000 unit 12/20/19 10:00 12/20/19 09:30 Heparin - SQ 5,000 unit BID [facility] Administration Hydrochlorothiazide 12.5 mg 12/20/19 07:45 12/20/19 09:00 Hctz - PO Not Given DAILY [facility] Lisinopril 5 mg 12/20/19 07:45 12/20/19 09:00 Prinivil PO Not Given DAILY [facility] COVERING FOR DR CHAVIS TODAY
--- NOTE | 2019-12-20 19:05 | PN ---
Teaching Attending Note Name of Resident: Tanmay Chavez ATTENDING PHYSICIAN STATEMENT I saw and evaluated the patient. I reviewed the resident's note and discussed the case with the resident. I agree with the resident's findings and plan as documented. 29 yo M with htn, hld, obesity, admitted near syncope symptoms. Hypertensive urgency; tachycardia; elevated BNP. +SOB. B/L leg swelling. CTA chest, no PE, but found to have small, non-specific mediastinal LAD. +smoker(marijuana). No constitutional symptoms. on exam: NAD, obese, tachycardic, chest clear, B/L +2 LE edema. Mild elevation of LDH. Likely benign, reactive mediastinal LAD. -would repeat CT chest with contrast in approx 3 months as outpt. -if repeat CT shows progression of LAD, will re-assess. -needs PCP follow-up -d/w House Staff.
[2019-12-20] MEDS ORDERED: ATORVASTATIN CA 80 MG TABLET (FP) PO SCH (22:00)
[2019-12-21 07:11] LABS: BASO % 0.4 % (0-2.0); EOS % 2.5 % (0-4.5); HEMATOCRIT 48.8 % (35.4-49); HEMOGLOBIN 15.9 GM/dL (11.7-16.9); LYMPH % 20.7 % (8-40); MCH 28.5 pg (25.7-33.7); MCHC 32.6 g/dl (32.0-35.9); MEAN CELL VOLUME 87.2 fl (80-96); MEAN PLT VOLUME 10.3 fl (7.5-11.1); MONO % 8.3 % (3.8-10.2); NEUT % 68.1 % (42.8-82.8); PLATELET COUNT 217 K/MM3 (134-434); RDW 13.6 % (11.9-15.9); WHITE BLOOD COUNT 12.1 K/mm3 (4.0-10.0)
[2019-12-21 07:50] LABS: ALBUMIN 3.2 g/dl (3.4-5.0); BILIRUBIN,TOTAL 1.3 mg/dL (0.2-1); BLOOD UREA NITROGEN 20.6 mg/dL (7-18); CALCIUM 9.1 mg/dL (8.5-10.1); CREATININE 1.3 mg/dL (0.55-1.3); POTASSIUM 3.6 mmol/L (3.5-5.1); TOT PROT 6.8 g/dl (6.4-8.2)
[2019-12-21] MEDS: ASPIRIN COATED 81 MG TABLET.EC PO SCH (09:29)
[2019-12-21] MEDS: HYDROCHLOROTHIAZIDE 12.5 MG CAPSULE (FP) PO SCH (09:30)
[2019-12-21] MEDS: HEPARIN NA (PORCINE) 5,000 UNITS/ML 1ML VIAL SQ SCH ×2 (09:30→21:39)
[2019-12-21] MEDS: LISINOPRIL 5 MG TABLET (FP) PO SCH (09:30)
--- NOTE | 2019-12-21 14:22 | PN ---
Progress Note, Physician History of Present Illness: Mr. Vivar is a 29 yo male with pmh HTN, HLD (does not have insurance, cannot afford medication, has not taken meds for over 7 months), morbid obesity (weighed 170 lbs at 18 yrs old; played several sports; since of child 9 yrs ago, he became sedentary and, though keeps healthy diet, eats "too much", and has at least 2 liters soda daily; "I know food can be an addiction"), likely sleep apnea (snores excessively; sometimes falls asleep while driving during the day), now presents to the ED for worsening SOB. Pt states over the last few months he has woken up in the middle of the night SOB, cannot walk more than 1 block without becoming SOB. On the way into the ED, pt became significantly SOB after walking up the steps from the parking lot and a rapid response was called in the main lobby. Pt admits to eating BBQ and fast food along with drinking a lot of soda recently. Pt also notes worsening bilateral lower limb swelling. 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 Denies CP, F/C/N/V. back pain, abdominal pain, recent travel, sick contacts. No hx smoking cigarettes. Alcohol:rare; never a heavy drinker. Substance abuse: marijuana a few times a week; otherwise no others. No family hx CAD/CVA. 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 - Current Medication List Current Medications: Active Medications Aspirin (Ecotrin -) 81 mg PO DAILY [facility] Last Admin: 12/21/19 09:29 Dose: 81 mg Documented by: Heparin Sodium (Porcine) (Heparin -) 5,000 unit SQ BID [facility] Last Admin: 12/21/19 09:30 Dose: 5,000 unit Documented by: Hydrochlorothiazide (Hctz -) 12.5 mg PO DAILY [facility] Last Admin: 12/21/19 09:30 Dose: 12.5 mg Documented by: Lisinopril (Prinivil) 5 mg PO DAILY [facility] Last Admin: 12/21/19 09:30 Dose: 5 mg Documented by: - Objective Vital Signs: Vital Signs Temperature 98.3 F 12/21/19 06:00 Pulse Rate 109 H 12/21/19 09:33 Respiratory Rate 20 12/21/19 09:33 Blood Pressure 176/112 H 12/21/19 09:33 O2 Sat by Pulse Oximetry (%) 92 L 12/21/19 09:33 Eyes: Yes: WNL, Conjunctiva Clear, EOM Intact HENT: Yes: WNL, Atraumatic, Normocephalic Neck: Yes: WNL, Supple, Trachea Midline Cardiovascular: Yes: WNL, Regular Rate and Rhythm Respiratory: Yes: WNL, Regular, CTA Bilaterally Gastrointestinal: Yes: WNL, Normal Bowel Sounds Genitourinary: Yes: WNL Musculoskeletal: Yes: WNL Extremities: Yes: WNL Edema: No Integumentary: Yes: WNL Neurological: Yes: WNL, Alert, Oriented ...Motor Strength: WNL Psychiatric: Yes: WNL Labs: CBC, BMP 12/21/19 05:46 12/21/19 05:46 INR, PTT INR 1.03 (0.83-1.09) 12/19/19 17:20 Assessment/Plan Noncompliance to medications, diet, exercise, doctors' visits; no insurance Morbid obesity Hypertensive urgency; tachycardia; elevated BNP Dyspnea on exertion sedentary hyperlipidemia elevated glucose Hypoalbuminemia Elevated LFTs Brother on heart transplant list CT chest: mediastinal and hilar lymphadenopathy; small pleural effusions; interstitial vascular congestion Leukocytosis PlN: Serial EKG and TNi (initial TNI 0.02) increase isinopril ad Norvasc 5 QD cont HCTZ; f/u BP serially. F/u BUN/Cr, electrolytes, daily weight, Is and Os. ECHO for LVEF, valve status. CTA negative for PE; f/u regarding lymphadenopathy Lipid profile; TSH; HGBA1c. Major issues are noncompliance, lack of insurance; poor prognosis if these are not addressed. TSH WNL Elevated LDL cholesterol. F/u LFTs (presently elevated); plan to start statin.
[2019-12-21] MEDS: amLODIPine BESYLATE 5 MG TABLET (FP) PO SCH (15:43)
[2019-12-21] MEDS: LISINOPRIL 10 MG TABLET (FP) PO SCH (15:43)
--- NOTE | 2019-12-21 21:28 | PN ---
Progress Note, Physician History of Present Illness: No new complaints - Current Medication List Current Medications: Active Medications Amlodipine Besylate (Norvasc -) 5 mg PO DAILY [facility] Last Admin: 12/21/19 15:43 Dose: 5 mg Documented by: Aspirin (Ecotrin -) 81 mg PO DAILY [facility] Last Admin: 12/21/19 09:29 Dose: 81 mg Documented by: Atorvastatin Calcium (Lipitor -) 80 mg PO [facility] Heparin Sodium (Porcine) (Heparin -) 5,000 unit SQ BID [facility] Last Admin: 12/21/19 09:30 Dose: 5,000 unit Documented by: Hydrochlorothiazide (Hctz -) 12.5 mg PO DAILY [facility] Last Admin: 12/21/19 09:30 Dose: 12.5 mg Documented by: Lisinopril (Prinivil) 10 mg PO DAILY [facility] Last Admin: 12/21/19 15:43 Dose: 10 mg Documented by: - Objective Vital Signs: Vital Signs Temperature 98.0 F 12/21/19 18:00 Pulse Rate 99 H 12/21/19 18:00 Respiratory Rate 12/21/19 18:00 Blood Pressure 167/100 12/21/19 18:00 O2 Sat by Pulse Oximetry (%) 92 L 12/21/19 09:33 Neck: Yes: WNL, Supple Cardiovascular: Yes: WNL, Regular Rate and Rhythm Respiratory: Yes: WNL, Regular, CTA Bilaterally Gastrointestinal: Yes: WNL, Normal Bowel Sounds, Soft, Abdomen, Obese Labs: CBC, BMP 12/21/19 05:46 12/21/19 05:46 INR, PTT INR 1.03 (0.83-1.09) 12/19/19 17:20 Problem List - Problems (1) Hypertensive urgency Assessment/Plan: BP still elevated echo showed LV dysfunction Cont lisinopril/norvascc Code(s): I16.0 - HYPERTENSIVE URGENCY (2) Lymphadenopathy Code(s): R59.1 - GENERALIZED ENLARGED LYMPH NODES
[2019-12-21] MEDS: ATORVASTATIN CA 80 MG TABLET (FP) PO SCH (21:39)
--- NOTE | 2019-12-22 06:28 | PN ---
Progress Note (short form) - Note Progress Note: Coverage for Dr. Marquez Cain Chief Complaint: Events noted, notes reviewed, resting in bed, denies any chest discomfort or dyspnea, blood pressure measurements remain elevated History of Present Illness: Seen and examined on telemetry. Events noted, notes reviewed, resting in bed, denies any chest discomfort or dyspnea, blood pressure measurements remain elevated Medications: Current Medications Generic Name Dose Route Start Last Admin Trade Name Jesus PRN Reason Stop Dose Admin Amlodipine Besylate 5 mg 12/21/19 14:30 12/22/19 09:08 Norvasc - PO 5 mg DAILY [facility] Administration Aspirin 81 mg 12/20/19 10:00 12/22/19 09:08 Ecotrin - PO 81 mg DAILY [facility] Administration Atorvastatin Calcium 80 mg 12/21/19 22:00 12/21/19 21:39 Lipitor - PO 80 mg HS [facility] Administration Heparin Sodium (Porcine) 5,000 unit 12/20/19 10:00 12/22/19 09:08 Heparin - SQ 5,000 unit BID [facility] Administration Hydrochlorothiazide 12.5 mg 12/20/19 07:45 12/22/19 09:08 Hctz - PO 12.5 mg DAILY [facility] Administration Lisinopril 10 mg 12/21/19 14:30 12/22/19 09:08 Prinivil PO 10 mg DAILY [facility] Administration Lisinopril 10 mg 12/22/19 12:14 Prinivil PO 12/22/19 12:15 ONCE ONE Review of Systems Constitutional: denies Chills or Fever Respiratory: denies: Dyspnea Cardiovascular: As noted above Gastrointestinal: denies Nausea, Vomiting, Diarrhea or Constipation or Abdominal Discomfort Genitourinary: No Symptoms Reported Musculoskeletal: No Symptoms Reported Vital Signs: Last Vital Signs Temp Pulse Resp BP Pulse Ox 98 F 102 H 20 161/117 H 94 L 12/22/19 09:07 12/22/19 09:07 12/22/19 09:07 12/22/19 09:07 12/22/19 09:07 Intake & Output 12/19/19 12/20/19 12/21/19 12/22/19 23:59 23:59 23:59 23:59 Intake Total 360 480 Output Total 1999 Balance -2000 360 480 Weight 325 lb 325 lb Neck: Supple Negative JVD Respiratory: Clear to auscultation percussion Cardiovascular: S1 S2 Regular Rate Rhythm Gastrointestinal: Soft Benign Normal Bowel Sounds Ext: Negative Edema Bilaterally Labs: CBC, BMP 12/21/19 05:46 12/21/19 05:46 Hepatic Panel Total Bilirubin 1.3 mg/dL (0.2-1) H 12/21/19 05:46 AST 54 U/L (15-37) H 12/21/19 05:46 ALT 88 U/L (13-61) H 12/21/19 05:46 Alkaline Phosphatase 101 U/L (45-117) 12/21/19 05:46 Albumin 3.2 g/dl (3.4-5.0) L 12/21/19 05:46 INR, PTT INR 1.03 (0.83-1.09) 12/19/19 17:20 Assessment/Plan ASSESSMENT: 1. Hypertensive cardiovascular disease with hypertensive urgency precipitated by therapy non-administration/non-compliance, lack of medical F/U 2. Diastolic LV dysfunction with clinical class 0 NYHA classification LV failure 3. Hyperglycemia 4. Hypercholesterolemia 5. Mediastinal lymph adenopathy, consider sarcoidosis in the differential diagnosis 6. Morbid obesity PLAN: 1. Continue Lisinopril, dose titration as needed and as tolerated 2. Continue Norvasc 3. Add B-Blockers unless absolutely contraindicated 4. Continue HCTZ 5. Eventual evaluation of the above noted lymph adenopathy as per the primary team Manjinder Rice MD
[2019-12-22] MEDS: LISINOPRIL 10 MG TABLET (FP) PO SCH (09:08)
[2019-12-22] MEDS: amLODIPine BESYLATE 5 MG TABLET (FP) PO SCH (09:08)
[2019-12-22] MEDS: ASPIRIN COATED 81 MG TABLET.EC PO SCH (09:08)
[2019-12-22] MEDS: HEPARIN NA (PORCINE) 5,000 UNITS/ML 1ML VIAL SQ SCH ×2 (09:08→21:22)
[2019-12-22] MEDS: HYDROCHLOROTHIAZIDE 12.5 MG CAPSULE (FP) PO SCH (09:08)
[2019-12-22] MEDS ORDERED: LISINOPRIL 10 MG TABLET (FP) PO ONE (12:30)
--- NOTE | 2019-12-22 12:50 | PN ---
Teaching Attending Note Name of Resident: Tanmay Chavez ATTENDING PHYSICIAN STATEMENT I saw and evaluated the patient. I reviewed the resident's note and discussed the case with the resident. I agree with the resident's findings and plan as documented. ASSESSMENT AND PLAN: 29 y/o patient with -- 1. Hypertensive cardiovascular disease with hypertensive urgency precipitated by therapy non-administration/non-compliance, lack of medical F/U 2. Diastolic LV dysfunction with clinical class 0 NYHA classification LV failure 3. Hyperglycemia 4. Hypercholesterolemia 5. Mediastinal lymph adenopathy, 6. Morbid obesity mild nmediastinal and hilar adenopathy -- ? reactive outpatient f/u Ct vs PET-Ct ? sarcoidosis
--- NOTE | 2019-12-22 20:39 | PN ---
Progress Note, Physician History of Present Illness: No new complaints - Current Medication List Current Medications: Active Medications Amlodipine Besylate (Norvasc -) 5 mg PO DAILY [facility] Last Admin: 12/22/19 09:08 Dose: 5 mg Documented by: Aspirin (Ecotrin -) 81 mg PO DAILY [facility] Last Admin: 12/22/19 09:08 Dose: 81 mg Documented by: Atorvastatin Calcium (Lipitor -) 80 mg PO HS [facility] Last Admin: 12/21/19 21:39 Dose: 80 mg Documented by: Heparin Sodium (Porcine) (Heparin -) 5,000 unit SQ BID [facility] Last Admin: 12/22/19 09:08 Dose: 5,000 unit Documented by: Hydrochlorothiazide (Hctz -) 12.5 mg PO DAILY [facility] Last Admin: 12/22/19 09:08 Dose: 12.5 mg Documented by: Lisinopril (Prinivil) 10 mg PO DAILY [facility] Last Admin: 12/22/19 09:08 Dose: 10 mg Documented by: - Objective Vital Signs: Vital Signs Temperature 98.3 F 12/22/19 18:00 Pulse Rate 101 H 12/22/19 18:00 Respiratory Rate 20 12/22/19 18:00 Blood Pressure 161/95 12/22/19 18:00 O2 Sat by Pulse Oximetry (%) 97 12/22/19 18:00 Neck: Yes: WNL, Supple Cardiovascular: Yes: WNL, Regular Rate and Rhythm Respiratory: Yes: WNL, Regular, CTA Bilaterally Gastrointestinal: Yes: WNL, Normal Bowel Sounds, Soft, Abdomen, Obese Labs: CBC, BMP 12/21/19 05:46 12/21/19 05:46 INR, PTT INR 1.03 (0.83-1.09) 12/19/19 17:20 Problem List - Problems (1) Hypertensive urgency Assessment/Plan: BP improving echo showed LV dysfunction Cont lisinopril/norvascc Lisinopril dose increased DC planning for am Code(s): I16.0 - HYPERTENSIVE URGENCY (2) Elevated LFTs Assessment/Plan: Will check abdominal US Repeat LFT's in am Code(s): R79.89 - OTHER SPECIFIED ABNORMAL FINDINGS OF BLOOD CHEMISTRY (3) Lymphadenopathy Assessment/Plan: Long d/w pt about need for close follow up Explained to pt that he needs outpt PET scan wc he understands Pt told he needs to see PMD this week to schedule PET scan to r/o malignancy Onco consult noted Code(s): R59.1 - GENERALIZED ENLARGED LYMPH NODES (4) Morbid obesity Code(s): E66.01 - MORBID (SEVERE) OBESITY DUE TO EXCESS CALORIES
[2019-12-22] MEDS: ATORVASTATIN CA 80 MG TABLET (FP) PO SCH (21:22)
--- NOTE | 2019-12-23 06:45 | PN ---
Progress Note (short form) - Note Progress Note: Coverage for Dr. Marquez Cain Chief Complaint: Events noted, notes reviewed, resting in bed, denies any chest discomfort or dyspnea, blood pressure measurements remain elevated History of Present Illness: Seen and examined on telemetry. Events noted, notes reviewed, resting in bed, denies any chest discomfort or dyspnea, blood pressure measurements remain elevated Patient's Lisinopril therapy was discontinued/unknown reason- Personally I feel patient would benefit from PRUDENCIO inhibitors or angiotensin receptor mallory therapy Medications: Current Medications Generic Name Dose Route Start Last Admin Trade Name Jesus PRN Reason Stop Dose Admin Amlodipine Besylate 5 mg 12/21/19 14:30 12/23/19 09:36 Norvasc - PO 5 mg DAILY [facility] Administration Aspirin 81 mg 12/20/19 10:00 12/23/19 09:35 Ecotrin - PO 81 mg DAILY [facility] Administration Atorvastatin Calcium 80 mg 12/21/19 22:00 12/22/19 21:22 Lipitor - PO 80 mg HS [facility] Administration Heparin Sodium (Porcine) 5,000 unit 12/20/19 10:00 12/23/19 09:36 Heparin - SQ 5,000 unit BID [facility] Administration Hydrochlorothiazide 12.5 mg 12/20/19 07:45 12/23/19 09:36 Hctz - PO 12.5 mg DAILY [facility] Administration Review of Systems Constitutional: denies Chills or Fever Respiratory: denies: Dyspnea Cardiovascular: As noted above Gastrointestinal: denies Nausea, Vomiting, Diarrhea or Constipation or Abdominal Discomfort Genitourinary: No Symptoms Reported Musculoskeletal: No Symptoms Reported Vital Signs: Last Vital Signs Temp Pulse Resp BP Pulse Ox 98.7 F 99 H 19 140/82 98 12/23/19 02:48 12/23/19 02:48 12/23/19 02:48 12/23/19 02:48 12/22/19 21:00 Intake & Output 12/20/19 12/21/19 12/22/19 12/23/19 23:59 23:59 23:59 23:59 Intake Total 360 1260 Balance 360 1260 Weight 325 lb Neck: Supple Negative JVD Respiratory: Clear to auscultation percussion Cardiovascular: S1 S2 Regular Rate Rhythm Gastrointestinal: Soft Benign Normal Bowel Sounds Ext: Negative Edema Bilaterally Labs: CBC, BMP 12/23/19 07:10 12/23/19 07:10 CBC, BMP 12/21/19 05:46 12/21/19 05:46 Hepatic Panel Total Bilirubin 1.3 mg/dL (0.2-1) H 12/21/19 05:46 AST 54 U/L (15-37) H 12/21/19 05:46 ALT 88 U/L (13-61) H 12/21/19 05:46 Alkaline Phosphatase 101 U/L (45-117) 12/21/19 05:46 Albumin 3.2 g/dl (3.4-5.0) L 12/21/19 05:46 INR, PTT INR 1.03 (0.83-1.09) 12/19/19 17:20 Assessment/Plan ASSESSMENT: 1. Hypertensive cardiovascular disease with hypertensive urgency precipitated by therapy non-administration/non-compliance, lack of medical F/U 2. Diastolic LV dysfunction with clinical class 0 NYHA classification LV failure 3. Hyperglycemia 4. Hypercholesterolemia 5. Mediastinal lymph adenopathy, consider sarcoidosis in the differential diagnosis 6. Morbid obesity PLAN: 1. Recommend reinitiation of PRUDENCIO inhibitor or angiotensin receptor mallory therapy, dose titration as needed and as tolerated 2. Continue Norvasc 3. As outlined in yesterday's note recommend addition of B-Blockers unless absolutely contraindicated 4. Continue HCTZ 5. Eventual evaluation of the above noted lymph adenopathy as per the primary team Manjinder Rice MD
[2019-12-23 08:22] LABS: BASO % 0.7 % (0-2.0); EOS % 1.8 % (0-4.5); HEMATOCRIT 49.6 % (35.4-49); HEMOGLOBIN 16.3 GM/dL (11.7-16.9); LYMPH % 25.9 % (8-40); MCH 28.8 pg (25.7-33.7); MCHC 32.9 g/dl (32.0-35.9); MEAN CELL VOLUME 87.3 fl (80-96); MEAN PLT VOLUME 10.1 fl (7.5-11.1); MONO % 8.4 % (3.8-10.2); NEUT % 63.2 % (42.8-82.8); PLATELET COUNT 223 K/MM3 (134-434); RBC 5.69 M/mm3 (4.00-5.60); RDW 13.7 % (11.9-15.9); WHITE BLOOD COUNT 10.8 K/mm3 (4.0-10.0)
[2019-12-23 08:44] LABS: ALBUMIN 3.2 g/dl (3.4-5.0); BILIRUBIN,TOTAL 0.7 mg/dL (0.2-1); BLOOD UREA NITROGEN 21.2 mg/dL (7-18); CALCIUM 9.1 mg/dL (8.5-10.1); CREATININE 1.1 mg/dL (0.55-1.3); POTASSIUM 3.9 mmol/L (3.5-5.1); TOT PROT 6.5 g/dl (6.4-8.2)
[2019-12-23] MEDS: ASPIRIN COATED 81 MG TABLET.EC PO SCH (09:35)
[2019-12-23] MEDS: amLODIPine BESYLATE 5 MG TABLET (FP) PO SCH (09:36)
[2019-12-23] MEDS: HYDROCHLOROTHIAZIDE 12.5 MG CAPSULE (FP) PO SCH (09:36)
[2019-12-23] MEDS: HEPARIN NA (PORCINE) 5,000 UNITS/ML 1ML VIAL SQ SCH (09:36)
[2019-12-23] MEDS ORDERED: VALSARTAN 80 MG TABLET (UD) PO SCH (11:00)
[2019-12-23] MEDS ORDERED: LISINOPRIL 10 MG TABLET (FP) PO SCH (13:00)
[2019-12-23 14:39] VITALS: BP 138/84; PULSE 98; TEMP 98.2
== END 2019-12-23 17:00 | disposition home or self-care (01) | DRG 199 ==
LOC: JER 16:24 → JERBED 18:52 → J4S 12-20 13:43
PROVIDERS: ADMIT Internal Medicine; ATTEND Internal Medicine
DX: I16.0 Hypertensive urgency (principal); T50.996A Underdosing of other drugs, medicaments and biological substances, initial encounter; R06.02 Shortness of breath; E78.5 Hyperlipidemia, unspecified; F12.10 Cannabis abuse, uncomplicated; R59.1 Generalized enlarged lymph nodes; I11.0 Hypertensive heart disease with heart failure; I50.30 Unspecified diastolic (congestive) heart failure; D72.829 Elevated white blood cell count, unspecified; R55 Syncope and collapse; R00.0 Tachycardia, unspecified; R73.9 Hyperglycemia, unspecified; E66.01 Morbid (severe) obesity due to excess calories; Z68.42 Body mass index [BMI] 45.0-49.9, adult; Z91.120 Patient's intentional underdosing of medication regimen due to financial hardship
CPT/HCPCS: 36415; 71045-TC-FY; 71275-TC; 76705-TC; 80053; 80061; 81003; 82550; 82553; 82728; 83036; 83605; 83615; 83721; 83735; 83880; 84075; 84443; 84450; 84460; 84484; 85025; 85379; 85610; 85730; 86140; 93005; 93010; 93306-TC; 93970-TC; 99285-25; J1644; Q9967; U0003

== ENCOUNTER 2020-03-14 04:43 | Inpatient (IN) | payer OTHER ==
--- NOTE | 2020-03-14 05:00 | PDOC ---
History of Present Illness - General Stated Complaint: BLOOD PRESSURE PROBLEM Time Seen by Provider: 03/14/20 05:00 Past History - Medical History Allergies/Adverse Reactions: Allergies Allergy/AdvReac Type Severity Reaction Status Date / Time No Known Allergies Allergy Verified 03/21/18 12:27 Home Medications: Ambulatory Orders Amlodipine Besylate [Norvasc -] 5 mg PO DAILY #30 tablet 12/23/19 Aspirin Coated [Ecotrin -] 81 mg PO DAILY #30 tablet.ec 12/23/19 Atorvastatin Ca [Lipitor] 80 mg PO HS #30 tablet 12/23/19 Hydrochlorothiazide [Hctz -] 12.5 mg PO DAILY #30 cap 12/23/19 Lisinopril [Prinivil] 10 mg PO DAILY #30 tablet 12/23/19 Lisinopril [Prinivil] 10 mg PO DAILY #30 tablet 12/23/19 Metoprolol Succinate [Toprol XL -] 50 mg PO DAILY #30 tab.sr.24h 12/23/19 Anemia: No Asthma: No Cancer: No CVA: No COPD: No CHF: No Dementia: No Diabetes: No GI Disorders: No Disorders: No HTN: Yes (noncompliant with meds) Hypercholesterolemia: Yes (noncompliant with meds) Liver Disease: No Seizures: No Thyroid Disease: No - Surgical History Abdominal Surgery: No Appendectomy: No Cardiac Surgery: No Cholecystectomy: No Lung Surgery: No Neurologic Surgery: No Orthopedic Surgery: No - Psycho-Social/Smoking History Smoking History: Never smoked Have you smoked in the past 12 months: No ED Treatment Course - LABORATORY CBC & Chemistry Diagram: 03/14/20 05:30 03/14/20 05:30 Medical Decision Making - Medical Decision Making 03/14/20 06:35 HPI: 29yo M hx HTN with admission for HTN emergency 2.5mo ago (2/2 noncompliance with tx x1yr), diastolic LV dysfunction with clinical class 0 NYHA classification LV failure, HLD, morbid obesity, and mediastinal lymph adenopathy (concern sarcoidosis vs malignancy; PET scan and onc f/u recommended outpatient but pt did not do) presents from home with 2wks gradual onset SOB, BO, dry cough, and high BP 2/2 noncompliance with all meds (HCTZ, metoprolol, norvasc, lisinopril, atorvastatin, aspirin) x2wks (ran out after 60 day supply; appt next week). Denies confusion, headache, dizziness, syncope, chest pain, rhinorrhea, congestion, sick contacts, travel, covid, abdominal pain, N/V, D/C, numbness/tingling, focal weakness, difficulty walking or talking. Endorses some night sweats and 50lb weight loss in 2.5mo. Endorses eating unhealthily, especially lots of salt last night. PE: slowed response to questions, some repetition of answers and seeming confusion, AAOx4, 5/5 strength throughout, SILT throughout, normal gait lungs CTAB no edema MDM: 29yo M hx HTN with admission for HTN emergency 2.5mo ago (2/2 noncompliance with tx x1yr), diastolic LV dysfunction with clinical class 0 NYHA classification LV failure, HLD, morbid obesity, and mediastinal lymph adenopathy (concern sarcoidosis vs malignancy; PET scan and onc f/u recommended outpatient but pt did not do) presents from home with 2wks gradual onset SOB, BO, dry cough, and high BP 2/2 noncompliance with all meds (HCTZ, metoprolol, norvasc, lisinopril, atorvastatin, aspirin) x2wks (ran out after 60 day supply; appt next week). Tachycardic, hypertensive 230/140 on R, 230/146 on L, 96% resting on RA drops to 90% with ambulation, afebrile. Ddx: HTN emergency, ICH, CHF exacerbation, ACS/FL, arrhythmia, PNA, COVID, malignancy, metabolic derangement, infection, anemia -EKG -CXR -CTH -CBC,CMP,Cardiac profile,UA -Enalaprit 1.25mg -Home meds: amlodipine, HCTZ, lisinopril (hold metoprolol) -Dispo: likely admit pending w/u Labs reviewed. Notable for WBC 16.3, bnp 168, trop neg CXR reviewed: no acute pathology, congestion improved from prior CTH reviewed: no acute pathology per wet read EKG reviewed: sinus tachycardia, 115bpm, QTc 475ms, no ST elevations or depressions, no TWIs, no significant changes from prior Signed out to day team Discharge - Follow up/Referral Referrals: Hector Ramirez MD [Primary Care Provider] - - Patient Discharge Instructions - Post Discharge Activity
--- OUTSIDE RECORDS SUMMARY | 2020-03-14 05:05 | XMS ---
:1990 Author Organization [facility] Support Name Relationship Address Phone UE, UNEMPLOYED Unavailable Unavailable Unavailable UE Unavailable Unavailable Unavailable [employer] [place] [address] [facility] [address] [place] [id number] Re-disclosure Warning The records that you are about to access may contain information from federally- assisted alcohol or drug abuse programs. If such information is present, then the following federally mandated warning applies: This information has been disclosed to you from records protected by federal confidentiality rules (42 CFR part 2). The federal rules prohibit you from making any further disclosure of this information unless further disclosure is expressly permitted by the written consent of the person to whom it pertains or as otherwise permitted by 42 CFR part 2. A general authorization for the release of medical or other information is NOT sufficient for this purpose. The Federal rules restrict any use of the information to criminally investigate or prosecute any alcohol or drug abuse patient.The records that you are about to access may contain highly sensitive health information, the redisclosure of which is protected by Article 27-F of the [facility] Public Health law. If you continue you may haveaccess to information: Regarding HIV / AIDS; Provided by facilities licensed or operated by the [facility] Office of Mental Health; or Provided by the [facility] Office for People With Developmental Disabilities. If such information is present, then the following [facility] mandated warning applies: This information has been disclosed to you from confidential records which are protected by state law. State law prohibits you from making any further disclosure of this information without the specific written consent of the person to whom it pertains, or as otherwise permitted by law. Any unauthorized further disclosure in violation of state law may result in a fine or snf sentence or both. A general authorization for the release of medical or other information is NOT sufficient authorization for further disclosure. Family History Family Member Family Member Family Member Date of Description Data Source(s) Name Gender Status Status Unknown Male Diagnosis 12/12/2013 OLAF ( 12:00:00 AM [facility] EDT [place]) Insurance Providers Payer name Policy type Policy ID Covered Covered constitution party's Policy P abhishek / Coverage constitution party ID relationship to Irizarry Inf ormation type irizarry [facility] [id number] SP [id number] PLANS MEDICAID [id number] SP [id number] MVP MEDICAID [id number] SP [id number] HMO PENDING SP EXCHANGE SELF PAY SP INSURANCE MVP MEDICAID [id number] SP [id number] HMO Results ID Date Data Source [id number] 12/19/2019 05:53:00 PM EDT [facility] Name Value Range Interpretation Description Data Sup porting Code Source(s) Document(s ) SARS [facility] coronavirus 2 RNA This lab was ordered by [facility] and reported by [facility]. Procedure
[2020-03-14] MEDS ORDERED: LABETALOL HCL 5 MG/1 ML (100MG/20 ML VIAL) IVPUSH ONE ×3 (05:14→11:49)
--- NOTE | 2020-03-14 05:23 | PDOC ---
Attending Attestation - Resident Resident Name: HelenhoseaGabriela - ED Attending Attestation I have performed the following: I have examined & evaluated the patient, The case was reviewed & discussed with the resident, I agree w/resident's findings & plan, Exceptions are as noted - HPI HPI: 03/14/20 07:33 See resident HPI - Physicial Exam PE: 03/14/20 07:33 Agree with documented exam - Medical Decision Making 03/14/20 07:33 Hx htn, chf here with symptomatic htn after med non-compliance BO and ?confusion f/u labs, ekg, cxr, ct head acute bp control 25% of peak, labetalol will need admission Discharge - Discharge Information Problems reviewed: Yes Clinical Impression/Diagnosis: Shortness of breath, Hypertensive emergency Condition: Improved Disposition: AGAINST MEDICAL ADVICE - Follow up/Referral - Patient Discharge Instructions - Post Discharge Activity
[2020-03-14 05:48] LABS: BASO % 0.5 % (0-2.0); EOS % 3.9 % (0-4.5); HEMATOCRIT 44.5 % (35.4-49); HEMOGLOBIN 15.1 GM/dL (11.7-16.9); LYMPH % 22.5 % (8-40); MCH 30.2 pg (25.7-33.7); MEAN CELL VOLUME 88.9 fl (80-96); MEAN PLT VOLUME 9.5 fl (7.5-11.1); MONO % 6.3 % (3.8-10.2); NEUT % 66.8 % (42.8-82.8); PLATELET COUNT 240 K/MM3 (134-434); RBC 5.01 M/mm3 (4.00-5.60); RDW 13.2 % (11.9-15.9); WHITE BLOOD COUNT 16.3 K/mm3 (4.0-10.0)
[2020-03-14] MEDS ORDERED: ENALAPRILAT DIHYDRATE 1.25 MG/1 ML VIAL IVPB ONE (05:48)
[2020-03-14] MEDS ORDERED: ENALAPRILAT DIHYDRATE 2.5 MG/2 ML VIAL IVPB ONE (05:55)
[2020-03-14] MEDS ORDERED: HYDROCHLOROTHIAZIDE 12.5 MG CAPSULE (FP) PO ONE ×2 (05:57→17:58)
[2020-03-14] MEDS ORDERED: amLODIPine BESYLATE 5 MG TABLET (FP) PO ONE ×3 (05:58→09:43)
[2020-03-14] MEDS ORDERED: amLODIPine BESYLATE 5 MG TABLET (FP) ONE (06:02)
[2020-03-14] MEDS ORDERED: LISINOPRIL 10 MG TABLET PO ONE ×2 (06:04→17:58)
[2020-03-14] MEDS ORDERED: HYDROCHLOROTHIAZIDE 25 MG TABLET (FP) ONE ×2 (06:05→17:51)
[2020-03-14 06:14] LABS: ALBUMIN 3.6 g/dl (3.4-5.0); ALK PHOS 120 U/L (45-117); ANION GAP 6 MMOL/L (8-16); BILIRUBIN,TOTAL 0.4 mg/dL (0.2-1); BLOOD UREA NITROGEN 20.9 mg/dL (7-18); CHLORIDE 103 mmol/L (98-107); CO2 30 mmol/L (21-32); GLUCOSE,RANDOM 128 mg/dL (74-106); N-TERMINAL BNP 168.3 pg/ml (5-125); POTASSIUM 4.1 mmol/L (3.5-5.1); SGOT/AST 25 U/L (15-37); SGPT/ALT 42 U/L (13-61); SODIUM 139 mmol/L (136-145); TOT PROT 7.2 g/dl (6.4-8.2)
--- NOTE | 2020-03-14 07:18 | PDOC ---
*Physical Exam - Vital Signs Last Vital Signs Temp Pulse Resp BP Pulse Ox 98.3 F 103 H 19 196/150 H 94 L 03/14/20 05:06 03/14/20 05:58 03/14/20 05:58 03/14/20 05:58 03/14/20 05:58 ED Treatment Course - LABORATORY CBC & Chemistry Diagram: 03/14/20 05:30 03/14/20 05:30 - ADDITIONAL ORDERS Additional order review: Laboratory Results 03/14/20 05:30 Sodium 139 Potassium 4.1 Chloride 103 Carbon Dioxide 30 Anion Gap 6 L BUN 20.9 H Creatinine 1.0 Est GFR (CKD-EPI)AfAm 115.72 Est GFR (CKD-EPI)NonAf 99.85 Random Glucose 128 H Calcium 9.0 Total Bilirubin 0.4 AST 25 ALT 42 Alkaline Phosphatase 120 H Creatine Kinase 113 Troponin I < 0.02 B-Natriuretic Peptide 168.3 H Total Protein 7.2 Albumin 3.6 03/14/20 05:30 RBC 5.01 MCV 88.9 MCHC 34.0 RDW 13.2 MPV 9.5 Neutrophils % 66.8 Lymphocytes % 22.5 Monocytes % 6.3 Eosinophils % 3.9 D Basophils % 0.5 - Medications Given in the ED: ED Medications Discontinued Medications Generic Name Dose Route Start Last Admin Trade Name Freq PRN Reason Stop Dose Admin Enalaprilat 1.25 mg 03/14/20 05:48 03/14/20 06:16 Vasotec Injection - IVPB 03/14/20 05:49 1.25 mg ONCE ONE Administration Labetalol HCl 20 mg 03/14/20 05:14 03/14/20 05:45 Normodyne Injection - IVPUSH 03/14/20 05:15 Not Given ONCE ONE Medical Decision Making - Medical Decision Making 03/14/20 07:19 29M with PMH of HTN, admitted for HTN emergency 2.5mo ago p/w with 2wks gradual onset SOB, dry cough, and high BP (initially 215/146) 2/2 noncompliance with meds (HCTZ, metoprolol, norvasc, lisinopril) x2wks. -> trop, CXR, CT head negative; EKG: sinus tachy @115 w/o ST or T changes, possible LVH (correlates to LV concentric hypertrophy on echo 12/20/19). Signed out from night team. -> Pending chest CT. Hypertensive emergency -> will give labetalol -> BP improved to 152/106 03/14/20 07:56 CT chest: no pericardial or pleural effusion, no hilar or mediastinal LAD (concern for mediastinal LAD on previous studies), remnant thymic tissue 03/14/20 08:19 Pt feels clinically improved but with SOB + hypertensive on arrival, will admit for cardiology workup, hypertensive emergency +/- HF 03/14/20 09:44 BP 165/101 -> given home dose amlodipine 03/14/20 09:54 Pt will be admitted to [facility] under Dr. Chavis. Discharge - Discharge Information Problems reviewed: Yes Clinical Impression/Diagnosis: Shortness of breath, Hypertensive emergency Condition: Improved - Admission Yes - Follow up/Referral Referrals: Hector Ramirez MD [Primary Care Provider] - - Patient Discharge Instructions - Post Discharge Activity
[2020-03-14] MEDS ORDERED: LABETALOL HCL 5 MG/1 ML (200MG/40ML VIAL) IVPB ONE (07:33)
[2020-03-14 08:42] LABS: EPI CELLS 4 /uL (0-25.1); HYALINE CASTS 1 /uL (0-3.1); URINE APPEARANCE CLEAR; URINE BACTERIA 7 /uL (0-1359); URINE BILIRUBIN NEGATIVE (NEGATIVE); URINE COLOR YELLOW; URINE GLUCOSE (UA) NEGATIVE (NEGATIVE); URINE KETONE NEGATIVE (NEGATIVE); URINE LEUK ESTERASE NEGATIVE (NEGATIVE); URINE NITRITE NEGATIVE (NEGATIVE); URINE PROTEIN 3+ (NEGATIVE); URINE RBC 4 /uL (0-23.9); URINE WBC 3 /uL (0-25.8)
--- OUTSIDE RECORDS SUMMARY | 2020-03-14 10:13 | XMS ---
:1990 Author Organization [facility] Support Name Relationship Address Phone UE, UNEMPLOYED Unavailable Unavailable Unavailable UE Unavailable Unavailable Unavailable [employer] [place] [address] [facility] [address] [place] [id number] Re-disclosure Warning The records that you are [...] is protected by Article 27-F of the [facility] Public Health law. If you continue you may haveaccess to information: Regarding HIV / AIDS; Provided by facilities licensed or operated by the [facility] Office of Mental Health; or Provided by the [facility] Office for People With Developmental Disabilities. If such information is present, then the following [facility] mandated warning applies: This information has been [...] law may result in a fine or group home sentence or both. A general authorization for the release of medical or other information is NOT sufficient authorization for further disclosure. Family History Family Member Family Member Family Member Date of Description Data Source(s) Name Gender Status Status Unknown Male Diagnosis 12/12/2013 OLAF ( 12:00:00 AM [facility] EDT [place]) Insurance Providers Payer name Policy type Policy ID Covered Covered constitution party's Policy P abhishek / Coverage constitution party ID relationship to Irizarry Inf ormation type irizarry P MEDICAID [id number] SP [id number] [facility] MEDICAID [id number] SP [id number] HMO [facility] [id number] SP [id number] PLANS MEDICAID [id number] SP [id number] PENDING SP EXCHANGE SELF PAY SP INSURANCE Results ID Date Data Source [id number] 12/19/2019 05:53:00 PM EDT [facility] Name Value Range Interpretation Description Data Sup porting Code Source(s) Document(s ) SARS [facility] coronavirus 2 RNA This lab was ordered by [facility] and reported by [facility]. Procedure
--- NOTE | 2020-03-14 10:32 | EKG ---
Test Reason : Blood Pressure : / mmHG Vent. Rate : 115 BPM Atrial Rate : 115 BPM P-R Int : 152 ms QRS Dur : 104 ms QT Int : 344 ms P-R-T Axes : 060 071 062 degrees QTc Int : 475 ms SINUS TACHYCARDIA WHEN COMPARED WITH ECG OF 19-DEC-2019 16:39, NO SIGNIFICANT CHANGE WAS FOUND Confirmed by MARTHA ARRIOLA MD ([id number]) on 03/14/2020 10:31:46 AM Referred By: Confirmed By:MARTHA ARRIOLA MD
[2020-03-14] MEDS ORDERED: LISINOPRIL 5 MG TABLET ONE (17:52)
--- NOTE | 2020-03-14 21:48 | HP ---
Admitting History and Physical - Admission History of Present Illness: Pt is a 29 y/o male w/ PMH significant for HTN(h/o noncompliance w/ meds and follow up), diastolic LV dysfunction with clinical class 0 NYHA classification, HLD, morbid obesity, and mediastinal lymph adenopathy (concern sarcoidosis vs malignancy; PET scan and onc f/u recommended outpatient but pt did not do) presents from home with 2wks gradual onset SOB, BO, dry cough, and high BP 2/2 noncompliance with all meds (HCTZ, metoprolol, norvasc, lisinopril, atorvastatin, aspirin). Pt ran out of meds at least 2wks ago. Pt also complained of RUE pain wc was worse w/ movement. In the eR pt found to have BP 215/146. Pt denies any WEBSTER/change in vision/N/V. - Past Medical History [employer]IST: Yes: Other (Morbid obesity) Cardiovascular: Yes: CHF, HTN, Hyperlipdemia - Smoking History Smoking history: Never smoked Have you smoked in the past 12 months: No - Alcohol/Substance Use Hx Alcohol Use: No Home Medications - Allergies Allergies/Adverse Reactions: Allergies Allergy/AdvReac Type Severity Reaction Status Date / Time No Known Allergies Allergy Verified 03/14/20 16:06 - Home Medications Home Medications: Ambulatory Orders Amlodipine Besylate [Norvasc -] 5 mg PO DAILY #30 tablet 12/23/19 Aspirin Coated [Ecotrin -] 81 mg PO DAILY #30 tablet.ec 12/23/19 Atorvastatin Ca [Lipitor] 80 mg PO HS #30 tablet 12/23/19 Hydrochlorothiazide [Hctz -] 12.5 mg PO DAILY #30 cap 12/23/19 Lisinopril [Prinivil] 10 mg PO DAILY #30 tablet 12/23/19 Metoprolol Succinate [Toprol XL -] 50 mg PO DAILY #30 tab.sr.24h 12/23/19 Family Medical History Family History: Unremarkable Review of Systems - Review of Systems Constitutional: reports: No Symptoms Eyes: reports: No Symptoms HENT: reports: No Symptoms Neck: reports: No Symptoms Cardiovascular: reports: No Symptoms Respiratory: reports: No Symptoms Gastrointestinal: reports: No Symptoms Genitourinary: reports: No Symptoms Physical Examination Vital Signs: Vital Signs Temperature 98.3 F 10/09/20 05:06 Pulse Rate 93 H 03/14/20 11:45 Respiratory Rate 16 03/14/20 11:45 Blood Pressure 182/117 H 03/14/20 18:00 O2 Sat by Pulse Oximetry (%) 95 03/14/20 08:27 Constitutional: Yes: Obese Eyes: Yes: WNL HENT: Yes: WNL Neck: Yes: WNL, Supple Cardiovascular: Yes: WNL, Regular Rate and Rhythm Respiratory: Yes: WNL, Regular, CTA Bilaterally Gastrointestinal: Yes: WNL, Normal Bowel Sounds, Soft, Abdomen, Obese Musculoskeletal: Yes: WNL Extremities: Yes: WNL Edema: No Neurological: Yes: WNL, Alert, Oriented ...Motor Strength: WNL Labs: CBC, BMP 03/14/20 05:30 03/14/20 05:30 Problem List - Problems (1) Hypertensive urgency Assessment/Plan: Restart antihypertensives Cardio consult Monitor CPK/troponin Code(s): I16.0 - HYPERTENSIVE URGENCY (2) Lymphadenopathy Assessment/Plan: Check CT scan chest Code(s): R59.1 - GENERALIZED ENLARGED LYMPH NODES (3) HLD (hyperlipidemia) Code(s): E78.5 - HYPERLIPIDEMIA, UNSPECIFIED (4) Morbid obesity Code(s): E66.01 - MORBID (SEVERE) OBESITY DUE TO EXCESS CALORIES
[2020-03-14 22:45] VITALS: BMI 42.7
[2020-03-15 06:55] LABS: BASO % 0.4 % (0-2.0); EOS % 5.6 % (0-4.5); HEMATOCRIT 45.2 % (35.4-49); HEMOGLOBIN 15.1 GM/dL (11.7-16.9); LYMPH % 22.7 % (8-40); MCH 29.8 pg (25.7-33.7); MCHC 33.4 g/dl (32.0-35.9); MEAN CELL VOLUME 89.1 fl (80-96); MEAN PLT VOLUME 9.7 fl (7.5-11.1); NEUT % 63.3 % (42.8-82.8); PLATELET COUNT 230 K/MM3 (134-434); RBC 5.07 M/mm3 (4.00-5.60); RDW 12.9 % (11.9-15.9); WHITE BLOOD COUNT 12.9 K/mm3 (4.0-10.0)
[2020-03-15 07:11] LABS: ALBUMIN 3.6 g/dl (3.4-5.0); BILIRUBIN,TOTAL 1.1 mg/dL (0.2-1); BLOOD UREA NITROGEN 15.8 mg/dL (7-18); CALCIUM 9.4 mg/dL (8.5-10.1); POTASSIUM 3.8 mmol/L (3.5-5.1); TOT PROT 7.2 g/dl (6.4-8.2)
[2020-03-15] MEDS ORDERED: amLODIPine BESYLATE 5 MG TABLET (FP) PO SCH (10:00)
[2020-03-15] MEDS ORDERED: LISINOPRIL 10 MG TABLET PO SCH (10:00)
[2020-03-15] MEDS ORDERED: HYDROCHLOROTHIAZIDE 12.5 MG CAPSULE (FP) PO SCH (10:00)
[2020-03-15] MEDS ORDERED: ASPIRIN COATED 81 MG TABLET.EC PO SCH (10:00)
--- NOTE | 2020-03-15 11:50 | CON.CARD ---
Cardiology Consult (text) - Consultation Consultation Note: Coverage for Dr. Dee Dee Cain Chief Complaint: Events noted, notes reviewed, resting in bed, denies any chest discomfort or dyspnea, blood pressure measurements remain elevated- presentation with chest discomfort,dyspnea and dry cough History of Present Illness: Seen and examined on telemetry. Full consult dictated Medications: Current Medications Generic Name Dose Route Start Last Admin Trade Name Jesus PRN Reason Stop Dose Admin Amlodipine Besylate 5 mg 03/15/20 10:00 03/15/20 09:33 Norvasc - PO 5 mg DAILY ARRON Administration Aspirin 81 mg 03/15/20 10:00 03/15/20 09:34 Ecotrin - PO 81 mg DAILY ARRON Administration Atorvastatin Calcium 80 mg 03/15/20 22:00 Lipitor - PO HS ARRON Hydrochlorothiazide 12.5 mg 03/15/20 10:00 03/15/20 09:33 Hctz - PO 12.5 mg DAILY ARRON Administration Lisinopril 10 mg 03/15/20 10:00 03/15/20 09:33 Prinivil PO 10 mg DAILY ARRON Administration Metoprolol Succinate 50 mg 03/15/20 10:00 03/15/20 09:33 Toprol Xl - PO 50 mg DAILY ARRON Administration Review of Systems Constitutional: denies Chills or Fever Respiratory: reports: Dyspnea Cardiovascular: As noted above Gastrointestinal: denies Nausea, Vomiting, Diarrhea or Constipation or Abdominal Discomfort Genitourinary: No Symptoms Reported Musculoskeletal: No Symptoms Reported Vital Signs: Last Vital Signs Temp Pulse Resp BP Pulse Ox 98.0 F 85 18 156/120 H 94 L 03/15/20 06:00 03/15/20 06:00 03/15/20 09:00 03/15/20 06:00 03/15/20 09:00 Intake & Output 03/12/20 03/13/20 03/14/20 03/15/20 23:59 23:59 23:59 23:59 Intake Total 240 610 Balance 240 610 Weight 289 lb 3.2 oz Neck: Supple Negative JVD Respiratory: Clear to auscultation percussion Cardiovascular: S1 S2 Regular Rate Rhythm Gastrointestinal: Soft Benign Normal Bowel Sounds Ext: Negative Edema Bilaterally Labs: Troponin, BNP 03/15/20 02:37 Troponin I < 0.02 CBC, BMP 03/15/20 06:15 10/10/20 06:15 Hepatic Panel Total Bilirubin 1.1 mg/dL (0.2-1) H 03/15/20 06:15 AST 22 U/L (15-37) 03/15/20 06:15 ALT 42 U/L (13-61) 03/15/20 06:15 Alkaline Phosphatase 98 U/L (45-117) 03/15/20 06:15 Albumin 3.6 g/dl (3.4-5.0) 03/15/20 06:15 Assessment/Plan ASSESSMENT: 1. Hypertensive cardiovascular disease with hypertensive urgency precipitated by therapy non-administration/non-compliance, lack of medical F/U 2. Diastolic LV dysfunction with clinical class 0 NYHA classification LV failure 3. History of hyperglycemia 4. Hypercholesterolemia 5. Obstructive sleep apnea to excluded 6. History of mediastinal lymph adenopathy- resolved 7. Morbid obesity PLAN: 1. Continue Lisinopril, dose titration as needed and as tolerated 2. Continue Norvasc, dose titration as needed and as tolerated 3. Continue Toprol XL, dose titration as needed and as tolerated 4. Continue HCTZ 5. Continue Lipitor 6. Eventual evaluation of possible obstructive sleep apnea 7. Counselled importances of compliance to therapy administration and medical F/U Patient can be D/C home from the cardiovascular point of view and to F/U later this week with his PMD for further therapy optimization Manjinder Rice MD
[2020-03-15] MEDS ORDERED: LISINOPRIL 20 MG TABLET PO SCH (12:04)
--- NOTE | 2020-03-15 12:53 | CONS ---
DATE OF CONSULTATION: 03/15/2020 CONSULTATION REQUESTED BY: Gabriela Chavis MD COVERAGE FOR: Aries Cain MD CHIEF COMPLAINT: Chest pain, dyspnea, elevated blood pressure measurement, cardiovascular evaluation. HISTORY OF PRESENT ILLNESS: A 29-year-old morbidly obese male of descent with known history of hypertensive cardiovascular disease, hyperglycemia, hypercholesterolemia, who presented to [facility] with vague chest discomfort, progressive dyspnea, cough nonproductive of sputum and was noted to have significantly elevated blood pressure measurements. Patient was recently admitted with a similar presentation at which point patient was initiated on antihypertensive therapies and was discharged home. Mixup with followup visit and patient has not seen his primary care provider and has not administered any medical therapy for the last 2 weeks. Patient currently is resting in bed. Denies any chest discomfort. Denies dyspnea. Patient did not report any orthopnea or paroxysmal nocturnal dyspnea. Patient did not report any peripheral edema. Patient denied any palpitation, dizziness, lightheadedness or syncope. Patient reported fatigue and tiredness. Echocardiography study which was performed during his prior hospitalization did not reveal any abnormalities. CT scan of the chest in the past had revealed lymphadenopathy which was not noted on the repeat CT scan of the chest performed yesterday in the emergency room. PAST MEDICAL HISTORY: Hypertensive cardiovascular disease with prior hospitalization with hypertensive urgency, hyperglycemia, hypercholesterolemia. SOCIAL HISTORY: Denies smoking. FAMILY HISTORY: Positive for hypertension. ALLERGIES: None reported. MEDICAL THERAPY: Currently includes Norvasc 5 mg once a day, Ecotrin 81 mg once a day, Lipitor 80 mg once a day, hydrochlorothiazide 12.5 mg once a day, lisinopril 10 mg once a day, Toprol XL 50 mg once a day. REVIEW OF SYSTEMS: Head and Neck: Denies headache, photophobia, blurring of vision. Respiratory: Reported cough nonproductive of sputum. Cardiovascular: As noted above. Gastrointestinal: No nausea, vomiting, diarrhea, abdominal discomfort. Genitourinary: No symptoms reported. PHYSICAL EXAMINATION: Vital Signs: Blood pressure is 156/120 mmHg, pulse rate is 85 beats per minute. Head and Neck: Pupils equal, reactive to light and accommodation, extraocular muscles intact, anicteric sclerae. Negative JVD. No bruit appreciated. Chest: Clear to auscultation and percussion. Cardiovascular: S1-S2, regular. No murmur, clicks or gallops. Abdomen: Soft, benign, normoactive bowel sound. Extremities: Negative edema. Intact distal pulses. No calf tenderness. DATA: EKG revealed sinus tachycardia with increased voltage. CT scan of the chest report was noted. CT scan of the head report was noted. CBC revealed white cell count 12.9, hemoglobin 15.1, platelet count 230. Basic metabolic profile revealed sodium 139, potassium 3.8, BUN 15.8, creatinine 1.0. BNP 168.3. ASSESSMENT: 1. Hypertensive cardiovascular disease with hypertensive urgency precipitated by therapy nonadministration/noncompliance, lack of medical followup. 2. Diastolic left ventricular dysfunction with clinical class zero [place] Heart Association classification left ventricular failure. 3. Hyperglycemia history. 4. Hypercholesterolemia. 5. Obstructive sleep apnea to be excluded. 6. History of mediastinal lymphadenopathy, resolved on repeat computed tomography scan of the chest. 7. Morbid obesity. RECOMMENDATIONS: 1. Continuation of lisinopril therapy, dose titration as needed and as tolerated. 2. Continuation of Norvasc therapy, dose titration as needed and as tolerated. 3. Continuation of Toprol XL therapy, dose titration as needed and as tolerated. 4. Continuation of hydrochlorothiazide therapy. 5. Continuation of Lipitor therapy. 6. Eventual evaluation of possible obstructive sleep apnea. 7. Patient was strongly counseled importance of compliance to therapy administration and medical followup. Patient can be discharged home from the cardiovascular point of view and to follow up later this week with his primary care provider for further therapy optimization. Discussed in detail with the patient. Thank you for your kind referral. JORGE LUIS FOSTER M.D. [id number]
[2020-03-15 15:04] VITALS: PULSE 89
--- NOTE | 2020-03-15 15:51 | PN ---
Progress Note, Physician History of Present Illness: wants to go home - Current Medication List Current Medications: Active Medications Amlodipine Besylate (Norvasc -) 5 mg PO DAILY [facility] Last Admin: 03/15/20 09:33 Dose: 5 mg Documented by: Aspirin (Ecotrin -) 81 mg PO DAILY [facility] Last Admin: 03/15/20 09:34 Dose: 81 mg Documented by: Atorvastatin Calcium (Lipitor -) 80 mg PO HS [facility] Hydrochlorothiazide (Hctz -) 12.5 mg PO DAILY [facility] Last Admin: 03/15/20 09:33 Dose: 12.5 mg Documented by: Lisinopril (Prinivil) 40 mg PO DAILY [facility] Metoprolol Succinate (Toprol Xl -) 50 mg PO BID [facility] - Objective Vital Signs: Vital Signs Temperature 98.4 F 03/15/20 14:02 Pulse Rate 89 03/15/20 14:02 Respiratory Rate 16 03/15/20 14:02 Blood Pressure 152/84 03/15/20 14:02 O2 Sat by Pulse Oximetry (%) 94 L 03/15/20 09:00 Constitutional: Yes: No Distress HENT: Yes: Atraumatic Neck: Yes: Supple Cardiovascular: Yes: Regular Rate and Rhythm Respiratory: Yes: CTA Bilaterally Gastrointestinal: Yes: Normal Bowel Sounds Extremities: Yes: WNL Neurological: Yes: Alert, Oriented Labs: CBC, BMP 03/15/20 06:15 03/15/20 06:15 Problem List - Problems (1) HLD (hyperlipidemia) Assessment/Plan: on meds stable Code(s): E78.5 - HYPERLIPIDEMIA, UNSPECIFIED (2) Hypertension Assessment/Plan: on meds monitor bp...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
[2020-03-15 17:04] VITALS: BP 145/92; TEMP 98.6
[2020-03-15] MEDS ORDERED: ATORVASTATIN CA 80 MG TABLET (FP) PO SCH (22:00)
== END 2020-03-15 21:00 | disposition left against medical advice (07) | DRG 199 ==
LOC: JER 04:43 → JERBED 09:55 → J4S 20:18
PROVIDERS: ADMIT Internal Medicine; ATTEND Internal Medicine
DX: I16.0 Hypertensive urgency (principal); G47.33 Obstructive sleep apnea (adult) (pediatric); I11.9 Hypertensive heart disease without heart failure; E66.01 Morbid (severe) obesity due to excess calories; Z68.41 Body mass index [BMI] 40.0-44.9, adult; R59.1 Generalized enlarged lymph nodes; E78.5 Hyperlipidemia, unspecified; Z91.14 Patient's other noncompliance with medication regimen
CPT/HCPCS: 36415; 70450-TC; 71046-TC-FY; 71260-TC; 80053; 81003; 82550; 83880; 84484; 85025; 93005; 93010; 99285-25; C9803; Q9967; U0003

== ENCOUNTER 2024-02-09 12:32 | Inpatient (IN) | payer OTHER ==
[2024-02-09] MEDS ORDERED: FAMOTIDINE 20 MG/50 ML IVPB 20 MG/50 ML MG IVPB ONE (13:59)
[2024-02-09] MEDS ORDERED: MAG HYDROX/AL HYDROX/SIMETH 30 ML UNIT-DOSE CUP ONE (13:59)
[2024-02-09] MEDS: FAMOTIDINE 20 MG/50 ML IVPB 20 MG/50 ML MG IVPB ONE (14:28)
[2024-02-09] MEDS: MAG HYDROX/AL HYDROX/SIMETH 30 ML UNIT-DOSE CUP PO ONE (14:28)
[2024-02-09 14:49] LABS: BASO % 0.5 % (0-2.0); EOS % 0.2 % (0-4.5); HEMATOCRIT 47.9 % (35.4-49); LYMPH % 16.6 % (8-40); MCH 30.4 pg (25.7-33.7); MCHC 33.5 g/dl (32.0-35.9); MEAN CELL VOLUME 90.9 fl (80-96); MEAN PLT VOLUME 10.6 fl (7.5-11.1); MONO % 7.1 % (3.8-10.2); NEUT % 75.6 % (42.8-82.8); PLATELET COUNT 280 10^3/uL (134-434); RBC 5.27 M/mm3 (4.00-5.60); RDW 13.1 % (11.9-15.9); WHITE BLOOD COUNT 9.2 K/mm3 (4.0-10.0)
[2024-02-09 15:14] LABS: POTASSIUM 4.5 mmol/L (3.5-5.1)
[2024-02-09 15:16] LABS: CALCIUM 9.4 mg/dL (8.5-10.1)
[2024-02-09 15:17] LABS: ALBUMIN 3.8 g/dl (3.4-5.0); BLOOD UREA NITROGEN 49.4 mg/dL (7-18)
[2024-02-09 15:20] LABS: CREATININE 1.9 mg/dL (0.55-1.3)
[2024-02-09 15:21] LABS: BILIRUBIN,TOTAL 2.1 mg/dL (0.2-1)
[2024-02-09 15:22] LABS: TOT PROT 7.8 g/dl (6.4-8.2)
[2024-02-09] MEDS: LACTATED RINGERS SOLUTION 1000 ML INFUS.BAG IV ONE ×3 (16:14→22:28)
[2024-02-09 16:17] LABS: HIV INTERPRETATION NEGATIVE (NEGATIVE)
[2024-02-09] MEDS: INSULIN REGULAR HUMAN 100 UNITS/ML *VIAL IVPUSH ONE ×2 (16:39→21:03)
[2024-02-09 17:36] LABS: VENOUS BASE EXCESS -12.5 mmol/L (-2-2); VENOUS O2 SATURATION 64.7 % (70-80)
[2024-02-09 17:38] LABS: VENOUS PH 7.198 (7.310-7.410)
[2024-02-09 18:07] LABS: MAGNESIUM 2.7 mg/dL (1.8-2.4)
[2024-02-09 18:26] LABS: ALBUMIN 3.8 g/dl (3.4-5.0); BLOOD UREA NITROGEN 46.3 mg/dL (7-18); CALCIUM 9.2 mg/dL (8.5-10.1)
[2024-02-09 18:30] LABS: CREATININE 1.8 mg/dL (0.55-1.3)
[2024-02-09 18:31] LABS: TOT PROT 7.6 g/dl (6.4-8.2)
[2024-02-09] MEDS ORDERED: KCL 10 MEQ IVPB 20 MEQ/200 ML INFUS.BAG IVPB ONE (19:53)
[2024-02-09] MEDS ORDERED: INSULIN REGULAR HUMAN 100 UNITS/ML *VIAL ONE (19:54)
[2024-02-09] MEDS: DEXTROSE 5%-0.45% SALINE 1,000 ML IV SCH (21:04)
[2024-02-09] MEDS: KCL 10 MEQ IVPB 10 MEQ/100 ML INFUS.BAG IVPB SCH (21:06)
[2024-02-09] MEDS: KCL 20 MEQ PREMIX BAG 20 MEQ/100 ML INFUS.BAG IVPB ONE (21:07)
[2024-02-09 21:14] LABS: POTASSIUM 4.2 mmol/L (3.5-5.1)
[2024-02-09 21:15] LABS: CALCIUM 8.9 mg/dL (8.5-10.1)
[2024-02-09 21:16] LABS: ALBUMIN 3.5 g/dl (3.4-5.0); BLOOD UREA NITROGEN 40.2 mg/dL (7-18); MAGNESIUM 2.4 mg/dL (1.8-2.4)
[2024-02-09 21:19] LABS: CREATININE 1.8 mg/dL (0.55-1.3)
[2024-02-09 21:21] LABS: BILIRUBIN,TOTAL 1.8 mg/dL (0.2-1); TOT PROT 6.8 g/dl (6.4-8.2)
[2024-02-09] MEDS: INSULIN REGULAR 100 UNITS in SODIUM CHLORIDE 99 ML IVPB SCH ×2 (21:47→23:59)
[2024-02-09 23:21] VITALS: BMI 43.2
[2024-02-10] MEDS: DEXTROSE 5%-0.45% SALINE 1,000 ML IV SCH ×3 (00:05→11:01)
[2024-02-10] MEDS: INSULIN REGULAR 100 UNITS in SODIUM CHLORIDE 99 ML IVPB SCH (00:16)
[2024-02-10 01:51] LABS: ARTERIAL BLD GAS O2 SATURATION 90.9 % (95-98); ARTERIAL BLOOD GAS BASE EXCESS -8.4 mmol/L (-2-2); ARTERIAL BLOOD GAS PO2 65.3 mmHg (80-100); ARTERIAL BLOOD GAS pH 7.296 (7.350-7.450)
[2024-02-10 01:52] LABS: ALLENS TEST POSITIVE
[2024-02-10 02:19] LABS: POTASSIUM 3.8 mmol/L (3.5-5.1)
[2024-02-10 02:20] LABS: CALCIUM 8.7 mg/dL (8.5-10.1)
[2024-02-10 02:21] LABS: BLOOD UREA NITROGEN 31.8 mg/dL (7-18)
[2024-02-10 02:24] LABS: CREATININE 1.5 mg/dL (0.55-1.3); PHOSPHOROUS 1.8 mg/dL (2.5-4.9)
[2024-02-10] MEDS: POTASSIUM PHOSPHATE 15 MM in SODIUM CHLORIDE 250 ML IVPB ONE (03:55)
[2024-02-10 08:05] LABS: EPI CELLS 2 /uL (0-25.1); HYALINE CASTS 0 /uL (0-3.1); PH,URINE 5.5 (5.0-8.0); URINE APPEARANCE CLEAR; URINE BACTERIA 8 /uL (0-1359); URINE BILIRUBIN NEGATIVE (NEGATIVE); URINE COLOR YELLOW; URINE GLUCOSE (UA) 3+ (NEGATIVE); URINE KETONE 3+ (NEGATIVE); URINE LEUK ESTERASE NEGATIVE (NEGATIVE); URINE NITRITE NEGATIVE (NEGATIVE); URINE PROTEIN 1+ (NEGATIVE); URINE RBC 9 /uL (0-23.9); URINE UROBILINOGEN 0.2 mg/dL (0.2-1.0); URINE WBC 3 /uL (0-25.8)
[2024-02-10 09:57] LABS: BASO % 0.6 % (0-2.0); EOS % 1.6 % (0-4.5); HEMATOCRIT 39.5 % (35.4-49); HEMOGLOBIN 13.4 GM/dL (11.7-16.9); LYMPH % 34.1 % (8-40); MCH 30.1 pg (25.7-33.7); MCHC 33.9 g/dl (32.0-35.9); MEAN CELL VOLUME 88.8 fl (80-96); MEAN PLT VOLUME 10.1 fl (7.5-11.1); MONO % 10.4 % (3.8-10.2); NEUT % 53.3 % (42.8-82.8); PLATELET COUNT 202 10^3/uL (134-434); RBC 4.45 M/mm3 (4.00-5.60); WHITE BLOOD COUNT 5.8 K/mm3 (4.0-10.0)
[2024-02-10 10:21] LABS: POTASSIUM 3.8 mmol/L (3.5-5.1)
[2024-02-10 10:23] LABS: BLOOD UREA NITROGEN 21.9 mg/dL (7-18); CALCIUM 8.3 mg/dL (8.5-10.1)
[2024-02-10 10:26] LABS: CREATININE 1.4 mg/dL (0.55-1.3); PHOSPHOROUS 2.3 mg/dL (2.5-4.9)
[2024-02-10 10:27] LABS: BILIRUBIN,TOTAL 1.8 mg/dL (0.2-1)
[2024-02-10] MEDS: MUPIROCIN 2% TOPICAL OINTMENT FOR DECOLONIZATION NS SCH (11:02)
[2024-02-10] MEDS: INSULIN ASPART SLIDING SCALE (NOVOLOG) 1 VIAL SQ SCH ×2 (11:20→17:01)
[2024-02-10] MEDS: INSULIN (LEVEMIR) 100 UNITS/ML UNITS SQ SCH (21:40)
[2024-02-10] MEDS ORDERED: CHLORHEXIDINE GLUCONATE 4% CLEANSER FOR DECOLONIZATION TP SCH ×2 (22:00)
[2024-02-10] MEDS ORDERED: MUPIROCIN 2% TOPICAL OINTMENT FOR DECOLONIZATION NS SCH (22:00)
[2024-02-11 08:30] LABS: BASO % 0.5 % (0-2.0); EOS % 1.5 % (0-4.5); HEMATOCRIT 39.6 % (35.4-49); HEMOGLOBIN 13.5 GM/dL (11.7-16.9); LYMPH % 36.6 % (8-40); MCH 30.3 pg (25.7-33.7); MCHC 34.2 g/dl (32.0-35.9); MEAN CELL VOLUME 88.6 fl (80-96); MEAN PLT VOLUME 10.2 fl (7.5-11.1); MONO % 9.9 % (3.8-10.2); NEUT % 51.5 % (42.8-82.8); PLATELET COUNT 214 10^3/uL (134-434); RBC 4.47 M/mm3 (4.00-5.60); RDW 12.9 % (11.9-15.9); WHITE BLOOD COUNT 5.6 K/mm3 (4.0-10.0)
[2024-02-11 08:50] LABS: PROTHROMBIN TIME (PATIENT) 11.3 SEC (9.7-13.0)
[2024-02-11 08:52] LABS: ACTIVATED PTT 33.3 SECONDS (25.2-36.5); POTASSIUM 3.8 mmol/L (3.5-5.1)
[2024-02-11 09:02] LABS: TOT PROT 6.4 g/dl (6.4-8.2)
[2024-02-11 09:03] LABS: ALBUMIN 3.2 g/dl (3.4-5.0); BLOOD UREA NITROGEN 14.8 mg/dL (7-18); MAGNESIUM 2.1 mg/dL (1.8-2.4)
[2024-02-11 09:04] LABS: CREATININE 1.2 mg/dL (0.55-1.3); PHOSPHOROUS 1.9 mg/dL (2.5-4.9)
[2024-02-11 12:44] VITALS: BP 110/82; PULSE 60; RESP 17; TEMP 99
== END 2024-02-11 15:55 | disposition home or self-care (01) | DRG 420 ==
LOC: JER 12:32 → JERBED 21:21 → JICU 23:06 → J7W 02-10 15:43
PROVIDERS: ADMIT Internal Medicine Pulmonary Disease; ATTEND Internal Medicine
DX: E11.10 Type 2 diabetes mellitus with ketoacidosis without coma (principal); I11.0 Hypertensive heart disease with heart failure; N17.9 Acute kidney failure, unspecified; Z68.41 Body mass index [BMI] 40.0-44.9, adult; E66.01 Morbid (severe) obesity due to excess calories; E78.5 Hyperlipidemia, unspecified; I50.9 Heart failure, unspecified
CPT/HCPCS: 36415; 36600; 71045-TC-FY; 71046-TC-FY; 80048; 80053; 81003; 82010; 82150; 82550; 82803; 82962; 83036; 83605; 83690; 83735; 83880; 84100; 84436; 84443; 84484; 85025; 85610; 85730; 86803; 86850; 86900; 86901; 87389; 93005; 93010; 99285-25